=== PATIENT | female | born 1940 | race African-American/Black ===

== ENCOUNTER 2016-06-03 10:25 | Inpatient (IN) | payer OTHER ==
--- NOTE | 2016-06-03 11:31 | PDOC ---
History of Present Illness - General Chief Complaint: Pain, Acute Stated Complaint: ABD PAIN (PCP SENT) Time Seen by Provider: 06/03/16 11:26 - History of Present Illness Initial Comments: 06/03/16 11:30 CHIEF COMPLAINT: abd pain HISTORY OF PRESENT ILLNESS: 75 yo F with hx of HTN, hypothyroidism (s/p thyroidectomy) was sent to ED by PCP for possible diverticulitis. Patient states 6 days ago she started having some abdominal pain "after eating some fish and a little barbecue, but I thought the pain would go away and it didn't. " Patient states she saw her PCP (MD Munoz) on Monday and was prescribed antibiotics (Levaquin and Flagyl), but her abdominal discomfort has not improved. She denies any nausea, vomiting, or diarrhea but complains of persistent LLQ. No recent travel or sick contacts. PAST MEDICAL HISTORY: as per HPI SOCIAL HISTORY: Lives at home. Denies tobacco, alcohol, illicit drug use. SURGICAL HISTORY: thyroidectomy, appendectomy (as child), hysterectomy, b/l knee replacements ALLERGIES: erythromycin, pcn, tetracyclines REVIEW OF SYSTEMS General/Constitutional: Denies fever or chills. Denies weakness, weight change. HEENT: Denies change in vision. Denies ear pain or discharge. Denies sore throat. Cardiovascular: Denies chest pain or shortness of breath. Respiratory: Denies cough, wheezing, or hemoptysis. Gastrointestinal: LLQ pain x 6 days. Denies nausea, vomiting, diarrhea or constipation. Denies rectal bleeding. Genitourinary: Denies dysuria, frequency, or change in urination. Musculoskeletal: Denies joint or muscle swelling or pain. Denies neck or back pain. Skin and breasts: Denies rash or easy bruising. PHYSICAL EXAM General Appearance: Well-appearing, appropriately dressed. No apparent distress , no intoxication. HEENT: EOMI, PERRLA, normal ENT inspection, normal voice, TMs normal, pharynx normal. No conjunctival pallor. No photophobia, scleral icterus. Respiratory/Chest: Lungs CTAB. Cardiovascular: RRR. S1, S2. Gastrointestinal/Abdominal: Tenderness to LLQ. Normal bowel sounds. Abdomen soft, non-distended. No organomegaly, pulsatile mass, guarding, hernia, hepatomegaly, splenomegaly. Lymphatic: No adenopathy, tenderness. Musculoskeletal/Extremities: Normal inspection. FROM of all extremities, normal capillary refill. Pelvis Stable. No CVA tenderness. No tenderness to extremities, pedal edema, swelling, erythema or deformity. Integumentary: Appropriate color, dry, warm. No cyanosis, erythema, jaundice or rash Neurologic: nurseryperson II-XII intact. Fully oriented, alert. Appropriate mood/affect. Motor strength 5/5. No appreciable EOM palsy, facial droop or sensory deficit. Past History - Past Medical History Allergies/Adverse Reactions: Allergies Allergy/AdvReac Type Severity Reaction Status Date / Time erythromycin base Allergy Verified 02/10/16 20:07 lactose Allergy Verified 06/05/16 13:55 Penicillins Allergy Verified 02/10/16 20:07 Tetracyclines Allergy Verified 02/10/16 20:07 Home Medications: Ambulatory Orders Aspirin [ASA -] 81 mg PO DAILY 06/03/16 Clotrimazole/Betamet Diprop [Lotrisone Cream (Small Tube)] 1 applic TP BID 06/03 Clotrimazole/Betamethasone Dip [Clotrimazole-Betamethasone Lot] 30 ml TP BID Levofloxacin [Levaquin] 500 mg PO DAILY 06/03/16 Levothyroxine [Synthroid -] 25 mcg PO DAILY 06/03/16 Metronidazole [Flagyl -] 500 mg PO BID 06/03/16 Nebivolol [Bystolic -] 5 mg PO DAILY 06/03/16 Olmesartan/Hydrochlorothiazide [Benicar Hct 40-25 mg Tablet] 1 each PO ACHS Olmesartan/Hydrochlorothiazide [Benicar Hct 40-25 mg Tablet] 1 each PO DAILY Polyethylene Glycol 3350 [Miralax 119 gm Btl -] 17 gm PO DAILY 06/03/16 Potassium Chloride [K-Dur -] 20 meq PO DAILY 06/03/16 Simethicone [Mylicon -] 80 mg PO DAILY 06/03/16 Trazodone HCl [Desyrel -] 50 mg PO HS 06/03/16 Polyethylene Glycol 3350 [Miralax (For Bowel Prep) -] 17 gm PO DAILY #1 bottle 06/10/16 Anemia: No Asthma: No Cancer: No Cardiac Disorders: No CVA: No COPD: No CHF: No Dementia: No Diabetes: No HTN: Yes Seizures: No Thyroid Disease: Yes (Hypothyroid) - Surgical History Abdominal Surgery: Yes Orthopedic Surgery: Yes - Psycho/Social/Smoking Cessation Hx Suicidal Ideation: No Smoking History: Never smoked Have you smoked in the past 12 months: No Information on smoking cessation initiated: No Hx Alcohol Use: No Drug/Substance Use Hx: No Substance Use Type: None Abd/GI Specific PMHX - Complaint Specific PMHX Gall Bladder Disease: No GERD: No Hepatitis: No Irritable Bowel Synd (IBS): No Pancreatitis: No GI Ulcer Disease: No *Physical Exam - Vital Signs Last Vital Signs Temp Pulse Resp BP Pulse Ox 98.6 F 81 18 160/69 100 06/03/16 10:27 06/03/16 10:27 06/03/16 10:27 06/03/16 10:27 06/03/16 10:27 ED Treatment Course - LABORATORY CBC & Chemistry Diagram: 06/10/16 06:15 06/10/16 06:15 - RADIOLOGY Radiology Studies Ordered: Category Date Time Status ABDOMEN & PELVIS CT WITH CONTR [CT] Stat CT Scan 06/03/16 11:28 Ordered CHEST PA & LAT [RAD] Stat Radiology 06/03/16 11:30 Ordered Medical Decision Making - Medical Decision Making 06/03/16 12:34 75 yo F with hx of HTN, hypothyroidism (s/p thyroidectomy) was sent to ED by PCP for possible diverticulitis. -CBC, CMP, lipase -EKG, CXR -Abdomen and pelvis CT with contrast CT results: Extensive diverticulsis coli with interval worsening in the degree of thickening of the mid sigmoid colon wall. Acute diverticulitis seen. A couple extraluminal air pocket suggestive of microperforation with significant edema and stranding, mainly anteriorly that may represent early formation of a phlegmon. No drainable collection/abscess identified. Read by: Vandana Gloria MD Discussed case with PCP Milagros, who accepts patient to inpatient services. *DC/Admit/Observation/Transfer Diagnosis at time of Disposition: Diverticulitis of sigmoid colon - Discharge Dispostion Disposition: HOME Admit: Yes - Prescriptions - Referrals
[2016-06-03 11:49] LABS: BASOPHIL 0.7 % (0-2.0); MCH 30.1 pg (25.7-33.7); MCHC 33.1 g/dl (32.0-36.0); MEAN CELL VOLUME 90.7 fl (80-96); MEAN PLT VOLUME 8.9 fl (7.5-11.1); NEUTROPHILS 69.5 % (42.8-82.8); PLATELET COUNT 267 K/MM3 (134-434); RDW 13.6 % (11.6-15.6); WHITE BLOOD COUNT 12.2 K/mm3 (4.0-10.0)
[2016-06-03 12:08] LABS: ALBUMIN 3.5 g/dl (3.4-5.0); BILIRUBIN,TOTAL 0.5 mg/dL (0.2-1.0); CALCIUM 9.5 mg/dL (8.5-10.1); CREATININE 1.1 mg/dL (0.55-1.02); TOT PROT 7.9 g/dl (6.4-8.2)
[2016-06-03] MEDS ORDERED: LEVOFLOXACIN 500 MG IVPB 100 ML IVPB ONE (15:48)
--- NOTE | 2016-06-03 15:50 | HP ---
Admitting History and Physical - Admission Chief Complaint: 75 y.o F is being admitted to [facility] due to severe low abdominal pain , left worse then right. Could not sleep all night. Initially presented to the office 4 days ago with this abdominal pain suspicious of acute diverticulitis. Labs in the office at that time showed ESR 77 and CRP of 12. The patient was treated with oral Levaquin, Metronidazole and diet but her condition worsened and she was sent to [facility] for further management. History of Present Illness: Extensive diverticulosis descending colon Hospitalized 5 month ago with acute diverticulitis HLD-not on statins due to multiple adverse reactions. HTN Hypothyroidism Pre-DM History Source: Patient, Medical Record Limitations to Obtaining History: No Limitations - Past Medical History Cardiovascular: Yes: HTN, Hyperlipdemia Musculoskeletal: Yes: Chronic low back pain, Osteoarthritis, Other (Shoulder pain, knee pain). No: Bursitis, Hemiparesis, Hemiplegia, Paraplegia Rheumatology: Yes: Other (OA) Endocrine: Yes: Hypothyroidism - Smoking History Smoking history: Never smoked Have you smoked in the past 12 months: No - Alcohol/Substance Use Hx Alcohol Use: No Home Medications - Allergies Allergies/Adverse Reactions: Allergies Allergy/AdvReac Type Severity Reaction Status Date / Time erythromycin base Allergy Verified 02/10/16 20:07 Penicillins Allergy Verified 02/10/16 20:07 Tetracyclines Allergy Verified 02/10/16 20:07 - Home Medications Home Medications: Ambulatory Orders Aspirin [ASA -] 81 mg PO DAILY 06/03/16 Clotrimazole/Betamet Diprop [Lotrisone Cream (Small Tube)] 1 applic TP BID 06/03 Clotrimazole/Betamethasone Dip [Clotrimazole-Betamethasone Lot] 30 ml TP BID Levofloxacin [Levaquin] 500 mg PO DAILY 06/03/16 Levothyroxine [Synthroid -] 25 mcg PO DAILY 06/03/16 Metronidazole [Flagyl -] 500 mg PO BID 06/03/16 Nebivolol [Bystolic -] 5 mg PO DAILY 06/03/16 Olmesartan/Hydrochlorothiazide [Benicar Hct 40-25 mg Tablet] 1 each PO ACHS Olmesartan/Hydrochlorothiazide [Benicar Hct 40-25 mg Tablet] 1 each PO DAILY Polyethylene Glycol 3350 [Miralax (For Daily Use) -] 17 gm PO DAILY 06/03/16 Potassium Chloride [K-Dur -] 20 meq PO DAILY 06/03/16 Simethicone [Mylicon -] 80 mg PO DAILY 06/03/16 Trazodone HCl [Desyrel -] 50 mg PO HS 06/03/16 Family Disease History - Family Disease History Family History: Unremarkable Review of Systems - Review of Systems Constitutional: reports: Loss of Appetite, Malaise, Weakness Eyes: denies: No Symptoms, Blind Spots, Blurred Vision, Double Vision, Eye Pain , Floaters, Photophobia, Recent Change in Vision, Other HENT: denies: No Symptoms, Difficult Swallowing, Ear Discharge, Ear Pain, Epistaxis, Gingival Bleeding, Hearing Loss, Mouth Swelling, Nasal Congestion, Ocular Prosthesis, Throat Pain, Toothache, Ringing in Ears, Other Neck: denies: No Symptoms, Decreased ROM, Lumps, Pain on Movement, Stiffness, Swollen Glands, Tenderness, Other Cardiovascular: denies: No Symptoms, Chest Pain, Edema, Palpitations, Shortness of Breath, Other Respiratory: denies: No Symptoms, Cough, Exercise Intolerance, Hemoptysis, Orthopnea, PND, Snoring, SOB, SOB on Exertion, Wheezing, Other Gastrointestinal: reports: Abdominal Pain, Diarrhea, Indigestion, Nausea. denies: Rectal Bleeding, Vomiting, Vomiting Blood Genitourinary: denies: Burning, Discharge Breasts: reports: No Symptoms Reported Musculoskeletal: reports: No Symptoms Neurological: reports: No Symptoms Hematology/Lymphatic: reports: No Symptoms Psychiatric: reports: No Symptoms Physical Examination Vital Signs: Vital Signs Temperature 98.6 F 06/03/16 10:27 Pulse Rate 81 06/03/16 10:27 Respiratory Rate 18 06/03/16 10:27 Blood Pressure 160/69 06/03/16 10:27 O2 Sat by Pulse Oximetry (%) 100 06/03/16 10:27 Constitutional: Yes: Anxious, Mild Distress Eyes: Yes: Conjunctiva Clear, EOM Intact HENT: Yes: Atraumatic, Normocephalic Neck: Yes: Supple, Trachea Midline Cardiovascular: Yes: Regular Rate and Rhythm. No: Bradycardia Respiratory: Yes: Regular, CTA Bilaterally Gastrointestinal: Yes: Soft, Tenderness (LLQ>RLH). No: Vomiting Breast(s): Yes: WNL Musculoskeletal: Yes: WNL Extremities: Yes: WNL Edema: No Peripheral Pulses WNL: Yes Integumentary: Yes: WNL Neurological: Yes: Alert, Oriented ...Motor Strength: WNL Psychiatric: Yes: WNL Labs: CBC, BMP 06/03/16 11:35 06/03/16 11:35 Laboratory Results - last 24 hr 06/03/16 06/03/16 11:35 11:35 WBC 12.2 H D RBC 3.61 Hgb 10.8 Hct 32.7 MCV 90.7 MCHC 33.1 RDW 13.6 Plt Count 267 MPV 8.9 Neutrophils % 69.5 Lymphocytes % 19.5 D Monocytes % 9.3 Eosinophils % 1.0 Basophils % 0.7 D Sodium 138 Potassium 4.5 Chloride 102 Carbon Dioxide 28 Anion Gap 8 BUN 12 Creatinine 1.1 H D Creat Clearance w eGFR 48.29 Random Glucose 97 Calcium 9.5 Total Bilirubin 0.5 D AST 23 D ALT 26 Alkaline Phosphatase 83 D Total Protein 7.9 D Albumin 3.5 Lipase 135 Laboratory Results - last 24 hr 06/03/16 06/03/16 06/03/16 11:35 11:35 13:36 WBC 12.2 H D RBC 3.61 Hgb 10.8 Hct 32.7 MCV 90.7 MCHC 33.1 RDW 13.6 Plt Count 267 MPV 8.9 Neutrophils % 69.5 Lymphocytes % 19.5 D Monocytes % 9.3 Eosinophils % 1.0 Basophils % 0.7 D ESR 123 H Sodium 138 Potassium 4.5 Chloride 102 Carbon Dioxide 28 Anion Gap 8 BUN 12 Creatinine 1.1 H D Creat Clearance w eGFR 48.29 Random Glucose 97 Calcium 9.5 Total Bilirubin 0.5 D AST 23 D ALT 26 Alkaline Phosphatase 83 D Total Protein 7.9 D Albumin 3.5 Lipase 135 Imaging - Results Cat Scan: Image Reviewed (Discussed with Dr Thomas) Problem List - Problems (1) Diverticulitis of sigmoid colon Assessment/Plan: Acute new area of sigmoid diverticulitis and phlegmon on CT Will follow with CT SX consult IV fluids, AB Follow ESTR, CRP Code(s): K57.32 - DVTRCLI OF LG INT W/O PERFORATION OR ABSCESS W/O BLEEDING (2) Abdominal pain Assessment/Plan: Due to sigmoid diverticulitis Will repeat CT in 24-48 hrs to r/o development drainable abscess. Clear liquid diet Miralax PO Code(s): R10.9 - UNSPECIFIED ABDOMINAL PAIN Qualifiers: Abdominal location: left lower quadrant Qualified Code(s): R10.32 - Left lower quadrant pain (3) HTN (hypertension) Assessment/Plan: Follow BP Bystolic PO Code(s): I10 - ESSENTIAL (PRIMARY) HYPERTENSION Qualifiers: Hypertension type: essential hypertension Qualified Code(s): I10 - Essential (primary) hypertension (4) Hypothyroidism Assessment/Plan: Continue oral Synthroid Code(s): E03.9 - HYPOTHYROIDISM, UNSPECIFIED Qualifiers: Hypothyroidism type: acquired Qualified Code(s): E03.9 - Hypothyroidism, unspecified
[2016-06-03] MEDS: LEVOFLOXACIN 500 MG IVPB 100 ML IVPB SCH (15:55)
--- NOTE | 2016-06-03 16:29 | PN ---
Progress Note (short form) - Note Progress Note: ID consult dictated imp/reccd 75 year old female with PMH of diverticulitis/diverticulosis, last treated with levaquin in 01/2016 for diverticulitis seen by Dr Munoz on Monday, she c/o 4 day of abdominal pain LLQ . no fevers she started levaquin 250 daily and flagyl 500 bid for 2-3 days this week and the abd pain worsened and she came to ed ct scan with sigmoid diverticulitis with phlegmon she is allergic to penicillin (many years ago in [place]-) allergic to erythromycin (SOB) allergic to Tetracycline (SOB) no weight loss last colonsocopy within 5 years 2 bms yesterday acute diverticulitis with phlegmon multiple antibiotic allergies agree with levaquin/flagyl - add azactam for increased gram negative coverage d/w Dr Munoz Problem List - Problems (1) Diverticulitis of sigmoid colon Code(s): K57.32 - DVTRCLI OF LG INT W/O PERFORATION OR ABSCESS W/O BLEEDING (2) Hx of antibiotic allergy Code(s): Z88.1 - ALLERGY STATUS TO OTHER ANTIBIOTIC AGENTS STATUS
[2016-06-03] MEDS: METRONIDAZOLE 500 MG PREMIXED 100 ML IVPB SCH ×2 (17:02→18:44)
[2016-06-03] MEDS ORDERED: METRONIDAZOLE 500 MG PREMIXED 100 ML IVPB ONE (17:17)
[2016-06-03 18:31] VITALS: BMI 29.3
[2016-06-03] MEDS: D5-1/2NS+20 MEQ KCL - 1,000 ML IV SCH (18:46)
--- NOTE | 2016-06-03 19:40 | CON.GI ---
Consult Consult Specialty:: GI Referred by:: Dr. Luis Eduardo Munoz Reason for Consultation:: Diverticulitis - History of Present Illness Chief Complaint: "I was having abdominal pain since monday" History of Present Illness: 75F admitted for evaluation of abdominal pain. She states that the pain started monday evening after having dinner. The pain persisted so she thought she would treat herself by changing to a liquid diet. The pain persisted so she was advised to go to ER. She was noted have a leukocytosis and CT scan revealed chronic thickening of the sigmoid colon along with area of acute inflammation, diverticulosis and air droplets adjacent to the sigmoid c/w diverticulitis. She believes that she last had a colonoscopy 5 + years ago that was "clean". She denies rectal bleeding, diarrhea or unintentional weight loss. - History Source History Provided By: Patient Limitations to Obtaining History: No Limitations - Past Medical History Cardio/Vascular: Yes: HTN, Hyperlipdemia Gastrointestinal: Yes: Diverticulosis Musculoskeletal: Yes: Chronic low back pain, Osteoarthritis, Other (Shoulder pain, knee pain). No: Bursitis, Hemiparesis, Hemiplegia, Paraplegia Rheumatology: Yes: Other (OA) Endocrine: Yes: Hypothyroidism (surgical secondary to partial thyroidectomy) - Past Surgical History Past Surgical History: Yes: Hysterectomy - Alcohol/Substance Use Hx Alcohol Use: No History of Substance Use: reports: None - Smoking History Smoking history: Never smoked Have you smoked in the past 12 months: No - Social History Usual Living Arrangement: Alone () ADL: Independent Occupation: Retired Orthopedic Assistant Place of : Other ([place]) Came to [place]year[place] over 40 years ago History of Recent Travel: No (last traveled to [place] last year) Home Medications - Allergies Allergies/Adverse Reactions: Allergies Allergy/AdvReac Type Severity Reaction Status Date / Time erythromycin base Allergy Verified 02/10/16 20:07 Penicillins Allergy Verified 02/10/16 20:07 Tetracyclines Allergy Verified 02/10/16 20:07 - Home Medications Home Medications: Ambulatory Orders Aspirin [ASA -] 81 mg PO DAILY 06/03/16 Clotrimazole/Betamet Diprop [Lotrisone Cream (Small Tube)] 1 applic TP BID 06/03 Clotrimazole/Betamethasone Dip [Clotrimazole-Betamethasone Lot] 30 ml TP BID Levofloxacin [Levaquin] 500 mg PO DAILY 06/03/16 Levothyroxine [Synthroid -] 25 mcg PO DAILY 06/03/16 Metronidazole [Flagyl -] 500 mg PO BID 06/03/16 Nebivolol [Bystolic -] 5 mg PO DAILY 06/03/16 Olmesartan/Hydrochlorothiazide [Benicar Hct 40-25 mg Tablet] 1 each PO ACHS Olmesartan/Hydrochlorothiazide [Benicar Hct 40-25 mg Tablet] 1 each PO DAILY Polyethylene Glycol 3350 [Miralax (For Daily Use) -] 17 gm PO DAILY 06/03/16 Potassium Chloride [K-Dur -] 20 meq PO DAILY 06/03/16 Simethicone [Mylicon -] 80 mg PO DAILY 06/03/16 Trazodone HCl [Desyrel -] 50 mg PO HS 06/03/16 Family Disease History - Family Disease History Family Disease History: Other: Father ( 80's: unclear cause), Mother ( 84 PNA), Brother ( 64: throat ca), Sister (: 80: bladder cancer) Other Family History: 4 children, 1 son age 55 unclear causes. No family history of colon cancer Review of Systems - Review of Systems Constitutional: denies: Fever Cardiovascular: denies: Chest Pain Respiratory: denies: SOB Gastrointestinal: reports: Abdominal Pain. denies: Diarrhea, Melena, Nausea, Rectal Bleeding Physical Exam-GI Vital Signs: Vital Signs Temperature 98.9 F 06/03/16 18:14 Pulse Rate 80 06/03/16 18:14 Respiratory Rate 25 H 06/03/16 18:14 Blood Pressure 139/78 06/03/16 18:14 O2 Sat by Pulse Oximetry (%) 100 06/03/16 10:27 Constitutional: Yes: Calm Eyes: No: Sclera Icterus Cardiovascular: Yes: Regular Rate and Rhythm, Murmur Respiratory: Yes: CTA Bilaterally Gastrointestinal Inspection: No: Distention ...Auscultate: Yes: Normoactive Bowel Sounds ...Palpate: Yes: Tenderness (TTP LLQ) ...Rectal Exam: Yes: Guaiac Negative Edema: No Neurological: Yes: Alert, Oriented Labs: CBC, BMP 06/03/16 11:35 06/03/16 11:35 Hepatic Panel Total Bilirubin 0.5 mg/dL (0.2-1.0) D 06/03/16 11:35 AST 23 U/L (15-37) D 06/03/16 11:35 ALT 26 U/L (12-78) 06/03/16 11:35 Alkaline Phosphatase 83 U/L (45-117) D 06/03/16 11:35 Albumin 3.5 g/dl (3.4-5.0) 06/03/16 11:35 Imaging - Results Cat Scan: Report Reviewed, Image Reviewed Problem List - Problems (1) Diverticulitis of sigmoid colon Assessment/Plan: Clinically Ms. Mcintsoh does not appear toxic Continue clears for now. If WBC's increasing / pain worsens would change to NPO AM Labs ABx being managed by ID as Ms. Mcintosh has multiple drug allergies Explained to Ms. Mcintosh that when her acute issues are resolved, she will need follow-up colonoscopy in 6-8 weeks. Office information provided in discharge summary Will follow with you Code(s): K57.32 - DVTRCLI OF LG INT W/O PERFORATION OR ABSCESS W/O BLEEDING
[2016-06-03] MEDS ORDERED: METRONIDAZOLE 500 MG PREMIXED 100 ML IVPB SCH (21:00)
[2016-06-03] MEDS: POLYETHYLENE GLYCOL 3350 119 GM BTL PO SCH (21:13)
[2016-06-03] MEDS: AZTREONAM 1 GM in DEXTROSE 5%-WATER - 50 ML IVPB SCH (21:14)
--- NOTE | 2016-06-04 01:52 | CONS ---
DATE OF CONSULTATION: DATE OF DICTATION: 06/03/2016 HISTORY OF PRESENT ILLNESS: This is a 75-year-old female with the past medical history of diverticulitis, diverticulosis, last treated with Levaquin on January 2016 for diverticulitis. She was seen by Dr. Munoz earlier this week, she thinks on Monday. Was started on Levaquin and Flagyl because she had left lower quadrant pain which she had had for 4 days. She had no fevers. She took the antibiotics without any improvement for the last 48 to 72 hours, and the abdominal pain worsened, and she came to the emergency room. CAT scan here reveals sigmoid diverticulitis with phlegmon. ALLERGIES: Of note, she is allergic to PENICILLIN many years ago in [place]. She is allergic to ERYTHROMYCIN as well as TETRACYCLINE. MEDICATION: Her medications as an outpatient include Synthroid, aspirin, Bystolic, Benicar, and trazodone. PAST MEDICAL HISTORY: Notable for hypertension, hyperlipidemia, chronic low back pain, osteoarthritis, and hypothyroidism . SURGICAL HISTORY: Notable for history of appendectomy as a child, hysterectomy, fallopian tubes have been removed, and she has had bilateral total knee replacements. SOCIAL HISTORY: She lives in the community. She is originally from [place], currently not working. REVIEW OF SYSTEMS: There has been no weight loss. There has been no diarrhea. She had 2 bowel movements yesterday. She denies any shortness of breath. She denies any fevers or chills or dysuria. PHYSICAL EXAMINATION: Vital signs: Temperature 98.6, blood pressure 160/69, pulse 81, respiratory rate 18. HEENT: Normocephalic. Eyes are anicteric. Neck: Supple. Lungs: Clear to auscultation. Heart: Regular rate and rhythm. Abdomen: Soft. She has no rebound or guarding. She has positive bowel sounds. She has left lower quadrant pain on palpation. LABORATORY: White count is 12.2, hemoglobin 10.8, platelets 267, sedimentation rate is 123, BUN and creatinine are 12 and 1.1, LFTs are normal. No cultures were sent. IMPRESSION: In summary, this is a 75-year-old woman with history of PENICILLIN allergy, allergic to ERYTHROMYCIN, allergic to TETRACYCLINE. She has had no weight loss. The last colonoscopy she says was within the last 5 years with acute diverticulitis with phlegmon on CAT scan and multiple antibiotic allergies. Would agree with Levaquin and Flagyl. Would add Azactam for increased gram negative coverage, and she was last on Levaquin back 2-3 months ago in January. All of the above was discussed with Dr. Munoz. JENNIE HINES M.D. [facility]/[id number]
[2016-06-04] MEDS: METRONIDAZOLE 500 MG PREMIXED 100 ML IVPB SCH ×3 (02:15→18:13)
[2016-06-04] MEDS: AZTREONAM 1 GM in DEXTROSE 5%-WATER - 50 ML IVPB SCH ×3 (02:15→17:13)
[2016-06-04] MEDS ORDERED: LEVOFLOXACIN 500 MG IVPB 100 ML IVPB SCH (06:00)
[2016-06-04] MEDS: LEVOTHYROXINE NA 25 MCG TABLET (FP) PO SCH (06:48)
--- NOTE | 2016-06-04 06:51 | PN ---
Progress Note, Physician Chief Complaint: C/o left low abdominal pain, weakness History of Present Illness: Extensive diverticulosis descending colon Hospitalized 5 month ago with acute diverticulitis HLD-not on statins due to multiple adverse reactions. HTN Hypothyroidism Pre-DM Thyroidectomy for goiter CHEO B/L TKR Appendectomy - Current Medication List Current Medications: Active Medications Levofloxacin (Levaquin 500 Mg Premixed Ivpb -) 100 mls @ 100 mls/hr IVPB DAILY [facility] Last Admin: 06/03/16 15:55 Dose: 100 mls/hr Potassium Chloride/Dextrose/Sod Cl (D5-1/2ns+20 Meq Kcl -) 1,000 mls @ 100 mls/ hr IV ASDIR [facility] Last Admin: 06/03/16 18:46 Dose: 100 mls/hr Metronidazole (Flagyl 500mg Premixed Ivpb -) 100 mls @ 100 mls/hr IVPB Q8H-IV [facility] Last Admin: 06/04/16 02:15 Dose: 100 mls/hr Aztreonam 1 gm/ Dextrose 50 mls @ 100 mls/hr IVPB Q8H-IV [facility] PRN Reason: Protocol Last Admin: 06/04/16 02:15 Dose: 100 mls/hr Levothyroxine Sodium (Synthroid -) 25 mcg PO DAILY@0700 ON LICENSE OF [facility] Nebivolol (Bystolic -) 5 mg PO DAILY ON LICENSE OF [facility] Polyethylene Glycol (Miralax (For Daily Use) -) 17 gm PO BID ON LICENSE OF [facility] Last Admin: 06/03/16 21:13 Dose: 17 grams - Objective Vital Signs: Vital Signs Temperature 98.7 F 06/03/16 22:00 Pulse Rate 82 06/03/16 22:00 Respiratory Rate 20 06/03/16 22:00 Blood Pressure 136/66 06/03/16 22:00 O2 Sat by Pulse Oximetry (%) 100 06/03/16 21:00 Constitutional: Yes: No Distress. No: Cachectic Eyes: Yes: Conjunctiva Clear, EOM Intact HENT: Yes: Atraumatic, Normocephalic. No: Drooling Neck: Yes: Supple, Trachea Midline Cardiovascular: Yes: Regular Rate and Rhythm. No: Bradycardia, Tachycardia Respiratory: Yes: Regular, CTA Bilaterally Gastrointestinal: Yes: Normal Bowel Sounds, Soft, Tenderness (LLQ). No: Splenomegaly, Vomiting ...Rectal Exam: Yes: Deferred (As per GI yesterday) Genitourinary: No: Anuria, Bladder Distention Breast(s): Yes: WNL Extremities: Yes: Other (B/L TKR). No: Calf Tenderness, Cold, Cyanosis Edema: No Peripheral Pulses WNL: Yes Integumentary: Yes: WNL Neurological: Yes: WNL, Alert, Oriented. No: Aphasia ...Motor Strength: WNL Psychiatric: Yes: WNL Additional Findings/Remarks: Laboratory Results - last 24 hr 06/03/16 06/03/16 06/03/16 11:35 11:35 13:36 WBC 12.2 H D RBC 3.61 Hgb 10.8 Hct 32.7 MCV 90.7 MCHC 33.1 RDW 13.6 Plt Count 267 MPV 8.9 Neutrophils % 69.5 Lymphocytes % 19.5 D Monocytes % 9.3 Eosinophils % 1.0 Basophils % 0.7 D ESR 123 H Sodium 138 Potassium 4.5 Chloride 102 Carbon Dioxide 28 Anion Gap 8 BUN 12 Creatinine 1.1 H D Creat Clearance w eGFR 48.29 Random Glucose 97 Calcium 9.5 Total Bilirubin 0.5 D AST 23 D ALT 26 Alkaline Phosphatase 83 D Total Protein 7.9 D Albumin 3.5 Lipase 135 Problem List - Problems (1) Diverticulitis of sigmoid colon Assessment/Plan: Acute new area of sigmoid diverticulitis and phlegmon on CT Will follow with CT in 24-48 hrs SX consult IV fluids, AB Follow ESTR, CRP Code(s): K57.32 - DVTRCLI OF LG INT W/O PERFORATION OR ABSCESS W/O BLEEDING (2) Abdominal pain Assessment/Plan: Due to sigmoid diverticulitis Will repeat CT in 24-48 hrs to r/o development drainable abscess. Clear liquid diet Miralax PO Code(s): R10.9 - UNSPECIFIED ABDOMINAL PAIN Qualifiers: Abdominal location: left lower quadrant Qualified Code(s): R10.32 - Left lower quadrant pain (3) HTN (hypertension) Assessment/Plan: Follow BP Bystolic PO Code(s): I10 - ESSENTIAL (PRIMARY) HYPERTENSION Qualifiers: Hypertension type: essential hypertension Qualified Code(s): I10 - Essential (primary) hypertension (4) Hypothyroidism Assessment/Plan: Continue oral Synthroid Code(s): E03.9 - HYPOTHYROIDISM, UNSPECIFIED Qualifiers: Hypothyroidism type: acquired Qualified Code(s): E03.9 - Hypothyroidism, unspecified
[2016-06-04 08:02] LABS: BASOPHIL 0.4 % (0-2.0); EOSINOPHIL 1.8 % (0-4.5); MCH 30.1 pg (25.7-33.7); MCHC 33.7 g/dl (32.0-36.0); MEAN CELL VOLUME 89.3 fl (80-96); MEAN PLT VOLUME 8.6 fl (7.5-11.1); NEUTROPHILS 69.1 % (42.8-82.8); PLATELET COUNT 261 K/MM3 (134-434); RDW 13.6 % (11.6-15.6); WHITE BLOOD COUNT 11.4 K/mm3 (4.0-10.0)
[2016-06-04 08:07] LABS: CALCIUM 8.7 mg/dL (8.5-10.1); CALCIUM 8.8 mg/dL (8.5-10.1); COCKROFT - GAULT 55.794
[2016-06-04 08:09] LABS: C-REACTIVE PROTEIN 7.8 MG/DL (0.00-0.3)
[2016-06-04 08:13] LABS: ALBUMIN 2.9 g/dl (3.4-5.0); BILIRUBIN,TOTAL 0.4 mg/dL (0.2-1.0); COCKROFT - GAULT 55.794; MAGNESIUM 1.8 mg/dL (1.8-2.4); PHOSPHOROUS 3.2 mg/dL (2.5-4.9); TOT PROT 6.7 g/dl (6.4-8.2)
[2016-06-04] MEDS ORDERED: PT OWN MED DRAWER 7, Y5N ONE (08:57)
[2016-06-04] MEDS: LEVOFLOXACIN 500 MG IVPB 100 ML IVPB SCH (09:10)
[2016-06-04] MEDS: D5-1/2NS+20 MEQ KCL - 1,000 ML IV SCH (09:13)
[2016-06-04] MEDS: NEBIVOLOL 5 MG TABLET (FP) PO SCH (09:15)
[2016-06-04] MEDS: POLYETHYLENE GLYCOL 3350 119 GM BTL PO SCH ×2 (09:16→22:35)
--- NOTE | 2016-06-04 09:21 | PN ---
Progress Note, Physician Chief Complaint: ID Abd pain improved Aztreonam & metronidazole Never febrile - Current Medication List Current Medications: Active Medications Levofloxacin (Levaquin 500 Mg Premixed Ivpb -) 100 mls @ 100 mls/hr IVPB DAILY [facility] Last Admin: 06/03/16 15:55 Dose: 100 mls/hr Potassium Chloride/Dextrose/Sod Cl (D5-1/2ns+20 Meq Kcl -) 1,000 mls @ 100 mls/ hr IV ASDIR [facility] Last Admin: 06/03/16 18:46 Dose: 100 mls/hr Metronidazole (Flagyl 500mg Premixed Ivpb -) 100 mls @ 100 mls/hr IVPB Q8H-IV [facility] Last Admin: 06/04/16 02:15 Dose: 100 mls/hr Aztreonam 1 gm/ Dextrose 50 mls @ 100 mls/hr IVPB Q8H-IV [facility] PRN Reason: Protocol Last Admin: 06/04/16 02:15 Dose: 100 mls/hr Levothyroxine Sodium (Synthroid -) 25 mcg PO DAILY@0700 [facility] Last Admin: 06/04/16 06:48 Dose: 25 mcg Nebivolol (Bystolic -) 5 mg PO DAILY [facility] Polyethylene Glycol (Miralax (For Daily Use) -) 17 gm PO BID [facility] Last Admin: 06/03/16 21:13 Dose: 17 grams - Objective Vital Signs: Vital Signs Temperature 98.8 F 06/04/16 06:00 Pulse Rate 78 06/04/16 06:00 Respiratory Rate 20 06/04/16 06:00 Blood Pressure 109/65 06/04/16 06:00 O2 Sat by Pulse Oximetry (%) 100 06/03/16 21:00 Constitutional: Yes: Well Nourished, No Distress Neck: Yes: WNL, Supple Cardiovascular: Yes: S1, S2 Respiratory: Yes: WNL, Regular, CTA Bilaterally Gastrointestinal: Yes: WNL, Normal Bowel Sounds, Soft, Tenderness, Other (LLQ pain no guarding) Labs: CBC, BMP 06/04/16 06:00 06/04/16 06:00 Assessment/Plan Laboratory Tests 06/03/16 06/03/16 06/04/16 11:35 13:36 06:00 WBC 12.2 H D 11.4 H Hgb 9.8 L Hct 29.1 L ESR 123 H BUN Creatinine Total Bilirubin AST ALT Alkaline Phosphatase C-Reactive Protein 06/04/16 06/04/16 06:00 06:00 WBC Hgb Hct ESR BUN 7 Creatinine 1.0 Total Bilirubin 0.4 AST 19 ALT 22 Alkaline Phosphatase 70 C-Reactive Protein 7.8 H Assessment Acute and chronic diverticulititis microperf suggested Many allergies noted Plan Continue current antibiotics as ordered ? Benefit of quinolone the gram neg coverage of aztreonam Doni RUANO
--- NOTE | 2016-06-04 10:46 | PN ---
Progress Note (short form) - Note Progress Note: surgery pt seen and examined. full consult dictated. 75 female previous diverticulitis in january, last colonoscopy about 5 years ago, previous CHEO and cyst removal, presents with llq abd pain, leukocytosis, and ct consistent with perforated contained mid sigmoid diverticulitis in same location as january. On exam abd is soft with mild suprapubic tenderness. Plan- Pt declines acute surgical intervention because she does not want a colostomy. cont medical management. cont npo, cont iv abx per id, may need to repeat ct on Monday to r/o abscess development. if medical management successful should consider elective sigmoid colectomy to prevent future recurrence. This should be done after colonoscopy in about 6-8 weeks. Pt understands that this may be a malignancy and that medical mangement may delay the diagnosis and ultimately lead to a worse outcome. Pt is non toxic. will follow.
--- NOTE | 2016-06-04 11:20 | CONS ---
DATE OF CONSULTATION: 06/04/2016 This is an emergency room consultation; it was requested by the emergency room physician. BRIEF HISTORY: This is a 75-year-old female who was previously admitted in January for presumed diverticulitis of her sigmoid colon. At that point, it was noncomplicated, and she had had a colonoscopy approximately 5 years earlier. She returns to [facility] Emergency Room with lower abdominal pain, left side greater than right side. She was noted to have some mild tenderness with an elevated white blood cell count. She underwent a CAT scan of her abdomen and pelvis which was consistent with a complicated diverticulitis, showing microperforation in the mid-sigmoid colon at the same location of her previous episode in January. She was admitted to the hospital, started on intravenous antibiotics which were then adjusted by the ID service to aztreonam as well as Flagyl. Overnight, she feels well. A surgical consultation was requested. She denies diarrhea, denies blood in her stool, denies recent weight loss. PAST MEDICAL HISTORY: Significant for diabetes, hypertension, hyperlipidemia. PAST SURGICAL HISTORY: Significant for a hysterectomy done through a Pfannenstiel incision and an ovarian cyst removal. SOCIAL HISTORY: Negative for alcohol. Negative for tobacco. ALLERGIES: PENICILLIN, TETRACYCLINE, ERYTHROMYCIN. HOME MEDICATIONS: Include aspirin, Levaquin, Flagyl, Bystolic, Benicar, and Desyrel. She was restarted on Levaquin and Flagyl this week by her PMD for presumed diverticulitis. FAMILY HISTORY: Noncontributory. REVIEW OF SYSTEMS: General: Denies fatigue or malaise. Cardiac: Denies chest pain or palpitations. Respiratory: Denies shortness of breath or wheeze. Gastrointestinal: As in HPI. Genitourinary: Denies dysuria. Musculoskeletal: Denies joint pain, joint swelling. Psychiatric: Denies hearing voices. PHYSICAL EXAMINATION: General: This is a well-developed, well-nourished, 75-year-old female in no distress. Vital Signs: She is afebrile. Her vital signs are stable. HEENT: Her head is normocephalic. Her sclerae are anicteric. Neck: Supple. Chest: Clear. Abdomen: Soft. She has a Pfannenstiel incision. She has perhaps an umbilical laparoscopic scar. She has mild tenderness in the suprapubic area. She is mildly distended. Extremities: No clubbing or cyanosis. There is trace edema, however. LABORATORY DATA: On review of her laboratory, white blood cell count is 11.4, which is down from 12.2. Her sedimentation rate is elevated at 123. Her chemistries are unremarkable. Her imaging is as in HPI. ASSESSMENT: This is a 75-year-old female with left lower quadrant pain, minimal suprapubic tenderness, leukocytosis, and CT scan evidence of complicated, recurrent sigmoid diverticulitis. Clinically, this is complicated, recurrent, acute sigmoid diverticulitis. I agree with admission. I agree with the antibiotic choice to cover Escherichia coli and other enteric-related as well as gram-negative bacteria. I would keep the patient n.p.o. despite the fact that she looks well and would consider repeat CAT scan on Monday to follow for development of an abscess. At this point, the patient has been offered exploratory surgery with sigmoid colectomy and colostomy and declines. She wishes to prevent having a colostomy. She understands that she may worsen and develop sepsis. She also understands that there is a small chance that this may be a malignancy and that by not doing surgery now, she could delay the diagnosis and ultimately have a worse outcome if this is cancer. She accepts this risk, and her daughter is present for the conversation. Therefore, would keep n.p.o., continue IV antibiotics. If medical management is successful, would consider elective sigmoid colectomy in 6-8 weeks after colonoscopy. This could likely be done laparoscopically and would likely not require a colostomy. At this point, we will follow the patient closely with you. She appears nontoxic. DO ALONDRA MARTINEZ/[id number] MTDD
--- NOTE | 2016-06-04 13:42 | PN ---
GI Progress Note Subjective: No acute events Abdominal pain improved - Objective Vital Signs: Vital Signs Temperature 98.4 F 06/04/16 09:00 Pulse Rate 74 06/04/16 09:00 Respiratory Rate 16 06/04/16 09:00 Blood Pressure 122/67 06/04/16 09:00 O2 Sat by Pulse Oximetry (%) 100 06/03/16 21:00 Constitutional: Calm Eyes: No: Sclera Icterus Cardiovascular: Yes: Regular Rate and Rhythm, Murmur Respiratory: Yes: CTA Bilaterally Gastrointestinal Inspection: No: Distention ...Auscultate: Yes: Normoactive Bowel Sounds ...Palpate: Yes: Tenderness (much improved TTP LLQ). No: Guarding, Tenderness, Rebound ...Percussion: No: Tympanitic Edema: No Neurological: Yes: Alert, Oriented Labs: CBC, BMP 06/04/16 06:00 06/04/16 06:00 Problem List - Problems (1) Diverticulitis of sigmoid colon Assessment/Plan: Patient clinically improved Seen by surgery who wants her to remain NPO. Dietary advancement per surgery Daily labs IV Abx per ID Will need follow-up colnoscopy in 6-8 weeks Code(s): K57.32 - DVTRCLI OF LG INT W/O PERFORATION OR ABSCESS W/O BLEEDING
--- NOTE | 2016-06-04 18:33 | EKG ---
Test Reason : Blood Pressure : / mmHG Vent. Rate : 070 BPM Atrial Rate : 070 BPM P-R Int : 170 ms QRS Dur : 088 ms QT Int : 380 ms P-R-T Axes : 043 036 030 degrees QTc Int : 410 ms NORMAL SINUS RHYTHM NORMAL ECG WHEN COMPARED WITH ECG OF 10-FEB-2016 21:12, NO SIGNIFICANT CHANGE WAS FOUND BASELINE ARTIFACT Confirmed by CELIA BEASLEY MD ([id number]) on 06/04/2016 6:33:02 PM Referred By: Confirmed By:CELIA BEASLEY MD
[2016-06-05] MEDS ORDERED: PT OWN MED DRAWER 7, Y5N ONE ×5 (02:07→17:34)
[2016-06-05] MEDS: AZTREONAM 1 GM in DEXTROSE 5%-WATER - 50 ML IVPB SCH ×3 (02:14→17:41)
[2016-06-05] MEDS: METRONIDAZOLE 500 MG PREMIXED 100 ML IVPB SCH ×3 (02:15→18:22)
[2016-06-05] MEDS: LEVOTHYROXINE NA 25 MCG TABLET (FP) PO SCH ×2 (06:06→09:31)
--- NOTE | 2016-06-05 06:42 | PN ---
Progress Note, Physician Chief Complaint: Less LLQ pain. Remains NPO Spoke to Dave Georges, GI consults appreciated. History of Present Illness: Extensive diverticulosis descending colon Hospitalized 5 month ago with acute diverticulitis HLD-not on statins due to multiple adverse reactions. HTN Hypothyroidism Pre-DM Thyroidectomy for goiter CHEO B/L TKR Appendectomy - Current Medication List Current Medications: Active Medications Potassium Chloride/Dextrose/Sod Cl (D5-1/2ns+20 Meq Kcl -) 1,000 mls @ 100 mls/ hr IV ASDIR [facility] Last Admin: 06/04/16 09:13 Dose: 100 mls/hr Metronidazole (Flagyl 500mg Premixed Ivpb -) 100 mls @ 100 mls/hr IVPB Q8H-IV [facility] Last Admin: 06/05/16 02:15 Dose: 100 mls/hr Aztreonam 1 gm/ Dextrose 50 mls @ 100 mls/hr IVPB Q8H-IV [facility] PRN Reason: Protocol Last Admin: 06/05/16 02:14 Dose: 100 mls/hr Levothyroxine Sodium (Synthroid -) 25 mcg PO DAILY@0700 [facility] Last Admin: 06/05/16 06:06 Dose: Not Given Nebivolol (Bystolic -) 5 mg PO DAILY [facility] Last Admin: 06/04/16 09:15 Dose: Not Given Polyethylene Glycol (Miralax (For Daily Use) -) 17 gm PO BID [facility] Last Admin: 06/04/16 22:35 Dose: Not Given - Objective Vital Signs: Vital Signs Temperature 99.1 F 06/05/16 02:39 Pulse Rate 82 06/04/16 22:00 Respiratory Rate 20 06/04/16 22:00 Blood Pressure 133/72 06/04/16 22:00 O2 Sat by Pulse Oximetry (%) 94 L 06/04/16 21:00 Constitutional: Yes: No Distress, Calm Eyes: Yes: Conjunctiva Clear, EOM Intact HENT: Yes: Atraumatic, Normocephalic Respiratory: Yes: Regular, CTA Bilaterally Gastrointestinal: Yes: Normal Bowel Sounds, Soft, Tenderness (LLQ) ...Rectal Exam: Yes: Deferred Genitourinary: No: Anuria, Bladder Distention Breast(s): Yes: WNL Musculoskeletal: Yes: WNL Extremities: Yes: Other (TKR). No: Calf Tenderness, Cyanosis Edema: No Peripheral Pulses WNL: Yes Integumentary: Yes: WNL Neurological: Yes: WNL ...Motor Strength: WNL Psychiatric: Yes: WNL Labs: CBC, BMP 06/04/16 06:00 06/04/16 06:00 Problem List - Problems (1) Diverticulitis of sigmoid colon Assessment/Plan: Acute new area of sigmoid diverticulitis and phlegmon on CT Will follow with CT Tomorrow SX consult noted IV fluids, AB Code(s): K57.32 - DVTRCLI OF LG INT W/O PERFORATION OR ABSCESS W/O BLEEDING (2) Abdominal pain Assessment/Plan: Due to sigmoid diverticulitis Will repeat CT tomorrow to r/o development drainable abscess. NPO except meds Miralax PO Code(s): R10.9 - UNSPECIFIED ABDOMINAL PAIN Qualifiers: Abdominal location: left lower quadrant Qualified Code(s): R10.32 - Left lower quadrant pain (3) HTN (hypertension) Assessment/Plan: Follow BP Bystolic PO Code(s): I10 - ESSENTIAL (PRIMARY) HYPERTENSION Qualifiers: Hypertension type: essential hypertension Qualified Code(s): I10 - Essential (primary) hypertension (4) Hypothyroidism Assessment/Plan: Continue oral Synthroid Code(s): E03.9 - HYPOTHYROIDISM, UNSPECIFIED Qualifiers: Hypothyroidism type: acquired Qualified Code(s): E03.9 - Hypothyroidism, unspecified
[2016-06-05] MEDS: NEBIVOLOL 5 MG TABLET (FP) PO SCH (09:31)
[2016-06-05] MEDS: POLYETHYLENE GLYCOL 3350 119 GM BTL PO SCH ×2 (09:31→21:26)
[2016-06-05 10:48] LABS: BASOPHIL 0.4 % (0-2.0); EOSINOPHIL 1.7 % (0-4.5); MCH 29.6 pg (25.7-33.7); MCHC 32.8 g/dl (32.0-36.0); MEAN CELL VOLUME 90.3 fl (80-96); MEAN PLT VOLUME 8.3 fl (7.5-11.1); NEUTROPHILS 68.6 % (42.8-82.8); PLATELET COUNT 307 K/MM3 (134-434); RDW 13.5 % (11.6-15.6); WHITE BLOOD COUNT 11.7 K/mm3 (4.0-10.0)
--- NOTE | 2016-06-05 11:23 | PN ---
Progress Note (short form) - Note Progress Note: surgery 06/04 pt seen and examined. full consult dictated. 75 female previous diverticulitis in january, last colonoscopy about 5 years ago, previous CHEO and cyst removal, presents with llq abd pain, leukocytosis, and ct consistent with perforated contained mid sigmoid diverticulitis in same location as january. On exam abd is soft with mild suprapubic tenderness. Plan- Pt declines acute surgical intervention because she does not want a colostomy. cont medical management. cont npo, cont iv abx per id, may need to repeat ct on Monday to r/o abscess development. if medical management successful should consider elective sigmoid colectomy to prevent future recurrence. This should be done after colonoscopy in about 6-8 weeks. Pt understands that this may be a malignancy and that medical mangement may delay the diagnosis and ultimately lead to a worse outcome. Pt is non toxic. will follow. 06/05 Pt seen and examined. feels well. no pain. hungry afebrile, tmax 100.0 abd- soft, nt Laboratory Tests 06/05/16 09:50 WBC 11.7 H Plan- clear liquids, cont iv abx. poss repeat ct MON.
--- NOTE | 2016-06-05 11:29 | PN ---
GI Progress Note Subjective: Abdominal pain improved No acute events - Objective Vital Signs: Vital Signs Temperature 98.3 F 06/05/16 08:55 Pulse Rate 77 06/05/16 08:55 Respiratory Rate 20 06/05/16 08:55 Blood Pressure 105/57 06/05/16 08:55 O2 Sat by Pulse Oximetry (%) 94 L 06/04/16 21:00 Constitutional: Calm Eyes: No: Sclera Icterus Cardiovascular: Yes: Regular Rate and Rhythm Respiratory: Yes: CTA Bilaterally Gastrointestinal Inspection: No: Distention ...Auscultate: Yes: Normoactive Bowel Sounds ...Palpate: Yes: Tenderness (much improved from admission. minimal TTP LLQ). No : Guarding, Tenderness, Rebound Edema: No Neurological: Yes: Alert, Oriented Labs: CBC, BMP 06/05/16 09:50 06/04/16 06:00 Hepatic Panel Total Bilirubin 0.4 mg/dL (0.2-1.0) 06/04/16 06:00 AST 19 U/L (15-37) 06/04/16 06:00 ALT 22 U/L (12-78) 06/04/16 06:00 Alkaline Phosphatase 70 U/L (45-117) 06/04/16 06:00 Albumin 2.9 g/dl (3.4-5.0) L 06/04/16 06:00 Problem List - Problems (1) Diverticulitis of sigmoid colon Assessment/Plan: Continuing medical management w/ IV abx / IV hydration Diet advancement per surgery Abx per ID AM labs Code(s): K57.32 - DVTRCLI OF LG INT W/O PERFORATION OR ABSCESS W/O BLEEDING
[2016-06-05] MEDS: D5-1/2NS+20 MEQ KCL - 1,000 ML IV SCH ×2 (15:55→16:08)
[2016-06-06] MEDS ORDERED: PT OWN MED DRAWER 7, Y5N ONE ×3 (01:09→18:36)
[2016-06-06] MEDS: AZTREONAM 1 GM in DEXTROSE 5%-WATER - 50 ML IVPB SCH ×3 (01:52→20:53)
[2016-06-06] MEDS: METRONIDAZOLE 500 MG PREMIXED 100 ML IVPB SCH ×3 (01:54→19:50)
[2016-06-06] MEDS: LEVOTHYROXINE NA 25 MCG TABLET (FP) PO SCH (06:22)
--- NOTE | 2016-06-06 07:46 | PN ---
Progress Note, Physician Chief Complaint: Fells better today, less abdominal pain. CT abdomen/pelvis done last night-official reading -pending. +BM History of Present Illness: Extensive diverticulosis descending colon Hospitalized 5 month ago with acute diverticulitis HLD-not on statins due to multiple adverse reactions. HTN Hypothyroidism Pre-DM Thyroidectomy for goiter CHEO B/L TKR Appendectomy - Current Medication List Current Medications: Active Medications Potassium Chloride/Dextrose/Sod Cl (D5-1/2ns+20 Meq Kcl -) 1,000 mls @ 100 mls/ hr IV ASDIR [facility] Last Admin: 06/05/16 16:08 Dose: Not Given Aztreonam 1 gm/ Dextrose 50 mls @ 100 mls/hr IVPB Q8H-IV [facility] PRN Reason: Protocol Last Admin: 06/06/16 01:52 Dose: 100 mls/hr Metronidazole (Flagyl 500mg Premixed Ivpb -) 100 mls @ 100 mls/hr IVPB Q8H-IV [facility] Last Admin: 06/06/16 01:54 Dose: 100 mls/hr Levothyroxine Sodium (Synthroid -) 25 mcg PO DAILY@0700 [facility] Last Admin: 06/06/16 06:22 Dose: 25 mcg Nebivolol (Bystolic -) 5 mg PO DAILY [facility] Last Admin: 06/05/16 09:31 Dose: 5 mg Polyethylene Glycol (Miralax (For Daily Use) -) 17 gm PO BID [facility] Last Admin: 06/05/16 21:26 Dose: Not Given - Objective Vital Signs: Vital Signs Temperature 98.4 F 06/06/16 06:00 Pulse Rate 74 06/06/16 06:00 Respiratory Rate 18 06/06/16 06:00 Blood Pressure 129/68 06/06/16 06:00 O2 Sat by Pulse Oximetry (%) 94 L 06/04/16 21:00 Constitutional: Yes: Calm Eyes: Yes: Conjunctiva Clear, EOM Intact HENT: Yes: Atraumatic, Normocephalic Neck: Yes: Supple, Trachea Midline Cardiovascular: Yes: Regular Rate and Rhythm Respiratory: Yes: Regular, CTA Bilaterally Gastrointestinal: Yes: Soft, Tenderness (LLQ). No: Abdomen, Obese, Ascites, Palpable Mass, Pulsatile Mass ...Rectal Exam: Yes: Deferred Genitourinary: No: Anuria, Bladder Distention Breast(s): Yes: WNL Musculoskeletal: No: Back Pain Edema: No Peripheral Pulses WNL: No Integumentary: Yes: WNL Neurological: Yes: WNL ...Motor Strength: WNL Psychiatric: Yes: WNL Labs: CBC, BMP 06/05/16 09:50 - ....Imaging Cat Scan: Pending Problem List - Problems (1) Diverticulitis of sigmoid colon Assessment/Plan: Acute new area of sigmoid diverticulitis and phlegmon on CT CT-P SX consult noted IV fluids, AB Code(s): K57.32 - DVTRCLI OF LG INT W/O PERFORATION OR ABSCESS W/O BLEEDING (2) Abdominal pain Assessment/Plan: Due to sigmoid diverticulitis CT-P NPO except meds Miralax PO Code(s): R10.9 - UNSPECIFIED ABDOMINAL PAIN Qualifiers: Abdominal location: left lower quadrant Qualified Code(s): R10.32 - Left lower quadrant pain (3) HTN (hypertension) Assessment/Plan: Follow BP Bystolic PO Code(s): I10 - ESSENTIAL (PRIMARY) HYPERTENSION Qualifiers: Hypertension type: essential hypertension Qualified Code(s): I10 - Essential (primary) hypertension (4) Hypothyroidism Assessment/Plan: Continue oral Synthroid Code(s): E03.9 - HYPOTHYROIDISM, UNSPECIFIED Qualifiers: Hypothyroidism type: acquired Qualified Code(s): E03.9 - Hypothyroidism, unspecified
[2016-06-06 08:10] LABS: CALCIUM 8.8 mg/dL (8.5-10.1); COCKROFT - GAULT 61.9905; CREATININE 0.9 mg/dL (0.55-1.02)
[2016-06-06] MEDS: NEBIVOLOL 5 MG TABLET (FP) PO SCH (10:15)
[2016-06-06] MEDS: POLYETHYLENE GLYCOL 3350 119 GM BTL PO SCH ×2 (10:16→22:19)
[2016-06-06] MEDS: D5-1/2NS+20 MEQ KCL - 1,000 ML IV SCH (10:16)
--- NOTE | 2016-06-06 11:27 | PN ---
Progress Note (short form) - Note Progress Note: feels much better less abdominal discomfort tolerating clears Vital Signs Period Temp Pulse Resp BP Sys/Griffith Pulse Ox Last 24 Hr 97.8 F-98.5 F 74-85 18-18 105-129/50-68 cor-rrr lungs clear abd soft,nt no pain on palpation ext no edema ct scan pending CBC, BMP 06/05/16 09:50 06/06/16 06:25 a/p diverticulitis - multiple antibiotic allergies continue antibiotics f/u ct scan (called radiology to expedite reading) Problem List - Problems (1) Diverticulitis of sigmoid colon Code(s): K57.32 - DVTRCLI OF LG INT W/O PERFORATION OR ABSCESS W/O BLEEDING (2) Hx of antibiotic allergy Code(s): Z88.1 - ALLERGY STATUS TO OTHER ANTIBIOTIC AGENTS STATUS
--- NOTE | 2016-06-06 14:41 | PN ---
Progress Note (short form) - Note Progress Note: surgery 06/04 pt seen and examined. full consult dictated. 75 female previous diverticulitis in january, last colonoscopy about 5 years ago, previous CHEO and cyst removal, presents with llq abd pain, leukocytosis, and ct consistent with perforated contained mid sigmoid diverticulitis in same location as january. On exam abd is soft with mild suprapubic tenderness. Plan- Pt declines acute surgical intervention because she does not want a colostomy. cont medical management. cont npo, cont iv abx per id, may need to repeat ct on Monday to r/o abscess development. if medical management successful should consider elective sigmoid colectomy to prevent future recurrence. This should be done after colonoscopy in about 6-8 weeks. Pt understands that this may be a malignancy and that medical mangement may delay the diagnosis and ultimately lead to a worse outcome. Pt is non toxic. will follow. 06/05 Pt seen and examined. feels well. no pain. hungry afebrile, tmax 100.0 abd- soft, nt Laboratory Tests 06/05/16 09:50 WBC 11.7 H Plan- clear liquids, cont iv abx. poss repeat ct MON. 06/06 pt seen and examined. feels well. tolerated liquids. no pain. repeat ct shows worsening which is expected only [address] but no collection or extraluminal air afebrile abd- soft, nt, nd Laboratory Tests 06/05/16 09:50 WBC 11.7 H advance to full liquids, cont iv abx. would repeat ct Monday to r/o collection.
--- NOTE | 2016-06-06 17:16 | PN ---
GI Progress Note Subjective: No acute events Overall she states feeling well CT scan revealed worsening inflammatory changes along the sigmoid with luminal narrowing Abx were adjusted by ID She alludes to having similar LLQ pain episode this past January - Objective Vital Signs: Vital Signs Temperature 98.8 F 06/06/16 15:45 Pulse Rate 76 06/06/16 15:45 Respiratory Rate 18 06/06/16 15:45 Blood Pressure 139/71 06/06/16 15:45 O2 Sat by Pulse Oximetry (%) 94 L 06/04/16 21:00 Constitutional: Calm Eyes: No: Sclera Icterus Cardiovascular: Yes: Regular Rate and Rhythm Respiratory: Yes: CTA Bilaterally Gastrointestinal Inspection: No: Distention ...Auscultate: Yes: Normoactive Bowel Sounds ...Palpate: Yes: Tenderness (Tenderness to deep palpation in the LLQ). No: Guarding, Tenderness, Rebound Edema: No (No LE edema) Neurological: Yes: Alert, Oriented Labs: CBC, BMP 06/05/16 09:50 06/06/16 06:25 Hepatic Panel Total Bilirubin 0.4 mg/dL (0.2-1.0) 06/04/16 06:00 AST 19 U/L (15-37) 06/04/16 06:00 ALT 22 U/L (12-78) 06/04/16 06:00 Alkaline Phosphatase 70 U/L (45-117) 06/04/16 06:00 Albumin 2.9 g/dl (3.4-5.0) L 06/04/16 06:00 Problem List - Problems (1) Diverticulitis of sigmoid colon Assessment/Plan: Attempting medical therapy Continuing IV abx: Adjusted per ID Surgery following Code(s): K57.32 - DVTRCLI OF LG INT W/O PERFORATION OR ABSCESS W/O BLEEDING
[2016-06-06] MEDS: VANCOMYCIN 1,250 MG in DEXTROSE 5%-WATER - 250 ML IVPB SCH (17:25)
[2016-06-07] MEDS: AZTREONAM 1 GM in DEXTROSE 5%-WATER - 50 ML IVPB SCH ×3 (02:04→18:03)
[2016-06-07] MEDS: METRONIDAZOLE 500 MG PREMIXED 100 ML IVPB SCH ×3 (03:50→18:03)
[2016-06-07] MEDS: LEVOTHYROXINE NA 25 MCG TABLET (FP) PO SCH (06:11)
[2016-06-07 08:13] LABS: BASOPHIL 0.9 % (0-2.0); EOSINOPHIL 5.2 % (0-4.5); MCH 30.1 pg (25.7-33.7); MCHC 33.3 g/dl (32.0-36.0); MEAN CELL VOLUME 90.4 fl (80-96); MEAN PLT VOLUME 8.2 fl (7.5-11.1); NEUTROPHILS 54.8 % (42.8-82.8); PLATELET COUNT 333 K/MM3 (134-434); RDW 13.2 % (11.6-15.6); WHITE BLOOD COUNT 7.8 K/mm3 (4.0-10.0)
[2016-06-07 08:15] LABS: CALCIUM 8.9 mg/dL (8.5-10.1); COCKROFT - GAULT 69.7425; CREATININE 0.8 mg/dL (0.55-1.02)
[2016-06-07] MEDS ORDERED: PT OWN MED DRAWER 7, Y5N ONE ×4 (10:01→18:09)
[2016-06-07] MEDS: NEBIVOLOL 5 MG TABLET (FP) PO SCH (10:03)
[2016-06-07] MEDS: POLYETHYLENE GLYCOL 3350 119 GM BTL PO SCH ×2 (10:04→22:08)
[2016-06-07] MEDS: D5-1/2NS+20 MEQ KCL - 1,000 ML IV SCH ×2 (10:39→18:04)
--- NOTE | 2016-06-07 12:22 | PN ---
Progress Note, Physician Chief Complaint: CT noted-some worsening of acute diverticulitis. Clinically feels better, less pain. WBC-wnl, CRP-down to 3.0 Patient was discussed with ID. History of Present Illness: Extensive diverticulosis descending colon Hospitalized 5 month ago with acute diverticulitis HLD-not on statins due to multiple adverse reactions. HTN Hypothyroidism Pre-DM Thyroidectomy for goiter CHEO B/L TKR Appendectomy - Current Medication List Current Medications: Active Medications Potassium Chloride/Dextrose/Sod Cl (D5-1/2ns+20 Meq Kcl -) 1,000 mls @ 100 mls/ hr IV ASDIR [facility] Last Admin: 06/07/16 10:39 Dose: 100 mls/hr Aztreonam 1 gm/ Dextrose 50 mls @ 100 mls/hr IVPB Q8H-IV MOHAMUD PRN Reason: Protocol Last Admin: 06/07/16 10:04 Dose: 100 mls/hr Metronidazole (Flagyl 500mg Premixed Ivpb -) 100 mls @ 100 mls/hr IVPB Q8H-IV [facility] Last Admin: 06/07/16 10:40 Dose: 100 mls/hr Vancomycin HCl 1,250 mg/ (Dextrose) 250 mls @ 125 mls/hr IVPB DAILY@1500 MOHAMUD PRN Reason: Protocol Last Admin: 06/06/16 17:25 Dose: 125 mls/hr Levothyroxine Sodium (Synthroid -) 25 mcg PO DAILY@0700 [facility] Last Admin: 06/07/16 06:11 Dose: 25 mcg Nebivolol (Bystolic -) 5 mg PO DAILY [facility] Last Admin: 06/07/16 10:03 Dose: 5 mg Polyethylene Glycol (Miralax (For Daily Use) -) 17 gm PO BID [facility] Last Admin: 06/07/16 10:04 Dose: Not Given - Objective Vital Signs: Vital Signs Temperature 97.5 F L 06/07/16 10:42 Pulse Rate 74 06/07/16 10:42 Respiratory Rate 17 06/07/16 10:42 Blood Pressure 128/73 06/07/16 10:42 O2 Sat by Pulse Oximetry (%) 94 L 06/06/16 21:00 Constitutional: Yes: Calm, Mild Distress Eyes: Yes: Conjunctiva Clear, EOM Intact HENT: Yes: Atraumatic, Normocephalic Neck: Yes: Supple, Trachea Midline. No: Decreased ROM, Lymphadenopathy Cardiovascular: Yes: Regular Rate and Rhythm. No: Bradycardia, Tachycardia Respiratory: Yes: Regular, CTA Bilaterally. No: Accessory Muscle Use, Cough Gastrointestinal: Yes: Soft, Tenderness (LLQ). No: Ascites, Palpable Mass ...Rectal Exam: Yes: Deferred Genitourinary: No: Anuria, Bladder Distention, CVA Tenderness - Left Breast(s): Yes: WNL Extremities: Yes: Other. No: Cold, Cyanosis (B/L TKR) Edema: No Integumentary: Yes: WNL Neurological: Yes: WNL ...Motor Strength: WNL Psychiatric: Yes: WNL Labs: CBC, BMP 06/07/16 06:30 06/07/16 06:30 Laboratory Results - last 24 hr 06/07/16 06/07/16 06:30 06:30 WBC 7.8 D RBC 3.29 L Hgb 9.9 L Hct 29.7 L MCV 90.4 MCHC 33.3 RDW 13.2 Plt Count 333 MPV 8.2 Neutrophils % 54.8 D Lymphocytes % 27.5 D Monocytes % 11.6 H Eosinophils % 5.2 H D Basophils % 0.9 Sodium 142 Potassium 4.4 Chloride 109 H Carbon Dioxide 25 Anion Gap 8 BUN 6 L Creatinine 0.8 Random Glucose 110 H Calcium 8.9 C-Reactive Protein 3.0 H D Problem List - Problems (1) Diverticulitis of sigmoid colon Assessment/Plan: Acute new area of sigmoid diverticulitis and phlegmon on CT CT-noted SX consult noted IV fluids, AB-AZACTAM, Flagyl, Vanco added by ID Code(s): K57.32 - DVTRCLI OF LG INT W/O PERFORATION OR ABSCESS W/O BLEEDING (2) Abdominal pain Assessment/Plan: Due to sigmoid diverticulitis CT-noted diet as per surgeons. Miralax PO Code(s): R10.9 - UNSPECIFIED ABDOMINAL PAIN Qualifiers: Abdominal location: left lower quadrant Qualified Code(s): R10.32 - Left lower quadrant pain (3) HTN (hypertension) Assessment/Plan: Follow BP Bystolic PO Code(s): I10 - ESSENTIAL (PRIMARY) HYPERTENSION Qualifiers: Hypertension type: essential hypertension Qualified Code(s): I10 - Essential (primary) hypertension (4) Hypothyroidism Assessment/Plan: Continue oral Synthroid Code(s): E03.9 - HYPOTHYROIDISM, UNSPECIFIED Qualifiers: Hypothyroidism type: acquired Qualified Code(s): E03.9 - Hypothyroidism, unspecified
--- NOTE | 2016-06-07 12:24 | PN ---
Progress Note (short form) - Note Progress Note: feels much better less abdominal discomfort ct scan with slight worsening of diverticulitis Vital Signs Period Temp Pulse Resp BP Sys/Griffith Pulse Ox Last 24 Hr 97.5 F-98.8 F 72-80 17-20 128-148/71-81 94 cor-rrr lungs clear abd soft,nt ext no edema CBC, BMP 06/07/16 06:30 06/07/16 06:30 a/p diverticulitis - multiple antibiotic allergies continue antibiotics vanco/azactam/flagyl wbc now normal d/w Dr Munoz Problem List - Problems (1) Diverticulitis of sigmoid colon Code(s): K57.32 - DVTRCLI OF LG INT W/O PERFORATION OR ABSCESS W/O BLEEDING (2) Hx of antibiotic allergy Code(s): Z88.1 - ALLERGY STATUS TO OTHER ANTIBIOTIC AGENTS STATUS
--- NOTE | 2016-06-07 13:23 | PN ---
Progress Note (short form) - Note Progress Note: surgery 06/04 pt seen and examined. full consult dictated. 75 female previous diverticulitis in january, last colonoscopy about 5 years ago, previous CHEO and cyst removal, presents with llq abd pain, leukocytosis, and ct consistent with perforated contained mid sigmoid diverticulitis in same location as january. On exam abd is soft with mild suprapubic tenderness. Plan- Pt declines acute surgical intervention because she does not want a colostomy. cont medical management. cont npo, cont iv abx per id, may need to repeat ct on Monday to r/o abscess development. if medical management successful should consider elective sigmoid colectomy to prevent future recurrence. This should be done after colonoscopy in about 6-8 weeks. Pt understands that this may be a malignancy and that medical mangement may delay the diagnosis and ultimately lead to a worse outcome. Pt is non toxic. will follow. 06/05 Pt seen and examined. feels well. no pain. hungry afebrile, tmax 100.0 abd- soft, nt Laboratory Tests 06/05/16 09:50 WBC 11.7 H Plan- clear liquids, cont iv abx. poss repeat ct MON. 06/06 pt seen and examined. feels well. tolerated liquids. no pain. repeat ct shows worsening which is expected only [address] but no collection or extraluminal air afebrile abd- soft, nt, nd Laboratory Tests 06/05/16 09:50 WBC 11.7 H advance to full liquids, cont iv abx. would repeat ct Monday to r/o collection. 06/07 Pt seen and examined. tolerating full liquids. feels much better. walking. afebrile abd- soft, nt Laboratory Tests 06/07/16 06:30 WBC 7.8 D Plan- cont full liquids. possible low fiber tomorrow. repeat ct Monday. If improved (I would expect) can likely d/c home on Po abx per id.
--- NOTE | 2016-06-07 14:00 | PN ---
GI Progress Note Subjective: States having some pain after urinating this morning, otherwise feeling better - Objective Vital Signs: Vital Signs Temperature 97.5 F L 06/07/16 10:42 Pulse Rate 74 06/07/16 10:42 Respiratory Rate 06/07/16 10:42 Blood Pressure 128/73 06/07/16 10:42 O2 Sat by Pulse Oximetry (%) 94 L 06/06/16 21:00 Constitutional: Calm Cardiovascular: Yes: Regular Rate and Rhythm, Murmur Respiratory: Yes: CTA Bilaterally Gastrointestinal Inspection: No: Distention ...Auscultate: Yes: Normoactive Bowel Sounds ...Palpate: No: Tenderness Edema: No Labs: CBC, BMP 06/07/16 06:30 06/07/16 06:30 Laboratory Tests 06/05/16 06/07/16 09:50 06:30 C-Reactive Protein 8.6 H D 3.0 H D Problem List - Problems (1) Diverticulitis of sigmoid colon Assessment/Plan: Clinically improved as has leukocytosis/CRP Continuing Abx per ID Diet advancement per surgery Code(s): K57.32 - DVTRCLI OF LG INT W/O PERFORATION OR ABSCESS W/O BLEEDING
[2016-06-07] MEDS: VANCOMYCIN 1,250 MG in DEXTROSE 5%-WATER - 250 ML IVPB SCH (15:24)
[2016-06-07] MEDS: HYDROCHLOROTHIAZIDE 25 MG TABLET (FP) PO SCH (22:24)
[2016-06-07] MEDS: VALSARTAN 160 MG TABLET (UD) PO SCH (22:24)
[2016-06-08] MEDS: AZTREONAM 1 GM in DEXTROSE 5%-WATER - 50 ML IVPB SCH ×3 (01:50→18:36)
[2016-06-08] MEDS: METRONIDAZOLE 500 MG PREMIXED 100 ML IVPB SCH ×3 (02:35→20:00)
[2016-06-08] MEDS: LEVOTHYROXINE NA 25 MCG TABLET (FP) PO SCH (06:21)
--- NOTE | 2016-06-08 08:01 | PN ---
Progress Note, Physician Chief Complaint: ID vanco metronidazole Aztreonam Feels well no commplaints - Current Medication List Current Medications: Active Medications Hydrochlorothiazide (Hctz -) 25 mg PO DAILY [facility] Last Admin: 06/07/16 22:24 Dose: 25 mg Potassium Chloride/Dextrose/Sod Cl (D5-1/2ns+20 Meq Kcl -) 1,000 mls @ 100 mls/ hr IV ASDIR [facility] Last Admin: 06/07/16 18:04 Dose: Not Given Aztreonam 1 gm/ Dextrose 50 mls @ 100 mls/hr IVPB Q8H-IV MOHAMUD PRN Reason: Protocol Last Admin: 06/08/16 01:50 Dose: 100 mls/hr Metronidazole (Flagyl 500mg Premixed Ivpb -) 100 mls @ 100 mls/hr IVPB Q8H-IV [facility] Last Admin: 06/08/16 02:35 Dose: 100 mls/hr Vancomycin HCl 1,250 mg/ (Dextrose) 250 mls @ 125 mls/hr IVPB DAILY@1500 MOHAMUD PRN Reason: Protocol Last Admin: 06/07/16 15:24 Dose: 125 mls/hr Levothyroxine Sodium (Synthroid -) 25 mcg PO DAILY@0700 [facility] Last Admin: 06/08/16 06:21 Dose: 25 mcg Nebivolol (Bystolic -) 5 mg PO DAILY [facility] Last Admin: 06/07/16 10:03 Dose: 5 mg Polyethylene Glycol (Miralax (For Daily Use) -) 17 gm PO BID [facility] Last Admin: 06/07/16 22:08 Dose: Not Given Valsartan (Diovan -) 160 mg PO DAILY [facility] Last Admin: 06/07/16 22:24 Dose: 160 mg - Objective Vital Signs: Vital Signs Temperature 98 F 06/08/16 07:14 Pulse Rate 76 06/08/16 07:14 Respiratory Rate 20 06/08/16 07:14 Blood Pressure 119/75 06/08/16 07:14 O2 Sat by Pulse Oximetry (%) 100 06/07/16 21:00 Constitutional: Yes: Well Nourished, No Distress HENT: Yes: WNL, Atraumatic Neck: Yes: WNL, Supple Cardiovascular: Yes: Regular Rate and Rhythm, S1, S2. No: Murmur Respiratory: Yes: WNL, Regular, CTA Bilaterally. No: Rales, Rhonchi Gastrointestinal: Yes: WNL, Normal Bowel Sounds, Soft. No: Tenderness, Tenderness, Epigastrium Edema: No Labs: CBC, BMP 06/07/16 06:30 06/07/16 06:30 Assessment/Plan Laboratory Tests 06/03/16 06/04/16 06/05/16 13:36 06:00 09:50 WBC Hgb Hct ESR 123 H BUN Creatinine C-Reactive Protein 7.8 H 8.6 H D 06/07/16 06/07/16 06:30 06:30 WBC 7.8 D Hgb 9.9 L Hct 29.7 L ESR BUN 6 L Creatinine 0.8 C-Reactive Protein 3.0 H D Assessment Diverticulitis with microperforation Antibiotic management the plan for now Continue IV antibiotic total 7 days CRP down Will sign off discharge on Levofloxacin metronidazole Check Vanco level. Doni RUANO
--- NOTE | 2016-06-08 08:42 | PN ---
Progress Note, Physician Chief Complaint: Less abdominal pain. HTN improved after meds last night History of Present Illness: Extensive diverticulosis descending colon Hospitalized 5 month ago with acute diverticulitis HLD-not on statins due to multiple adverse reactions. HTN Hypothyroidism Pre-DM Thyroidectomy for goiter CHEO B/L TKR Appendectomy - Current Medication List Current Medications: Active Medications Hydrochlorothiazide (Hctz -) 25 mg PO DAILY [facility] Last Admin: 06/07/16 22:24 Dose: 25 mg Potassium Chloride/Dextrose/Sod Cl (D5-1/2ns+20 Meq Kcl -) 1,000 mls @ 100 mls/ hr IV ASDIR [facility] Last Admin: 06/07/16 18:04 Dose: Not Given Aztreonam 1 gm/ Dextrose 50 mls @ 100 mls/hr IVPB Q8H-IV MOHAMUD PRN Reason: Protocol Last Admin: 06/08/16 01:50 Dose: 100 mls/hr Metronidazole (Flagyl 500mg Premixed Ivpb -) 100 mls @ 100 mls/hr IVPB Q8H-IV [facility] Last Admin: 06/08/16 02:35 Dose: 100 mls/hr Vancomycin HCl 1,250 mg/ (Dextrose) 250 mls @ 125 mls/hr IVPB DAILY@1500 MOHAMUD PRN Reason: Protocol Last Admin: 06/07/16 15:24 Dose: 125 mls/hr Levothyroxine Sodium (Synthroid -) 25 mcg PO DAILY@0700 [facility] Last Admin: 06/08/16 06:21 Dose: 25 mcg Nebivolol (Bystolic -) 5 mg PO DAILY [facility] Last Admin: 06/07/16 10:03 Dose: 5 mg Polyethylene Glycol (Miralax (For Daily Use) -) 17 gm PO BID [facility] Last Admin: 06/07/16 22:08 Dose: Not Given Valsartan (Diovan -) 160 mg PO DAILY [facility] Last Admin: 06/07/16 22:24 Dose: 160 mg - Objective Vital Signs: Vital Signs Temperature 98 F 06/08/16 07:14 Pulse Rate 76 06/08/16 07:14 Respiratory Rate 20 06/08/16 07:14 Blood Pressure 119/75 06/08/16 07:14 O2 Sat by Pulse Oximetry (%) 100 06/07/16 21:00 Constitutional: Yes: Anxious, Mild Distress Eyes: Yes: Conjunctiva Clear, EOM Intact HENT: Yes: Atraumatic, Normocephalic Neck: Yes: Supple, Trachea Midline Cardiovascular: Yes: Regular Rate and Rhythm Respiratory: Yes: Regular, CTA Bilaterally Gastrointestinal: Yes: Normal Bowel Sounds, Soft, Tenderness (LLQ). No: Abdomen , Obese ...Rectal Exam: Yes: Deferred Genitourinary: No: Anuria Breast(s): Yes: WNL Musculoskeletal: Yes: WNL Extremities: Yes: Other (B/L TKR) Integumentary: Yes: WNL Neurological: Yes: WNL ...Motor Strength: WNL Labs: CBC, BMP 06/07/16 06:30 06/07/16 06:30 Problem List - Problems (1) Diverticulitis of sigmoid colon Assessment/Plan: Well continue abx x 48 hrs IV fluids, AB-AZACTAM, Flagyl, Vanco added by ID Code(s): K57.32 - DVTRCLI OF LG INT W/O PERFORATION OR ABSCESS W/O BLEEDING (2) Abdominal pain Assessment/Plan: Due to sigmoid diverticulitis CT-noted diet as per surgeons. Miralax PO Code(s): R10.9 - UNSPECIFIED ABDOMINAL PAIN Qualifiers: Abdominal location: left lower quadrant Qualified Code(s): R10.32 - Left lower quadrant pain (3) HTN (hypertension) Assessment/Plan: Follow BP Bystolic PO-added Diovan and HCT Code(s): I10 - ESSENTIAL (PRIMARY) HYPERTENSION Qualifiers: Hypertension type: essential hypertension Qualified Code(s): I10 - Essential (primary) hypertension (4) Hypothyroidism Assessment/Plan: Continue oral Synthroid Code(s): E03.9 - HYPOTHYROIDISM, UNSPECIFIED Qualifiers: Hypothyroidism type: acquired Qualified Code(s): E03.9 - Hypothyroidism, unspecified
[2016-06-08] MEDS: POLYETHYLENE GLYCOL 3350 119 GM BTL PO SCH ×2 (09:02→21:46)
[2016-06-08] MEDS ORDERED: PT OWN MED DRAWER 7, Y5N ONE ×2 (09:03→17:30)
[2016-06-08] MEDS: NEBIVOLOL 5 MG TABLET (FP) PO SCH (09:07)
[2016-06-08] MEDS: VALSARTAN 160 MG TABLET (UD) PO SCH (09:07)
[2016-06-08] MEDS: HYDROCHLOROTHIAZIDE 25 MG TABLET (FP) PO SCH (09:07)
[2016-06-08] MEDS: D5-1/2NS+20 MEQ KCL - 1,000 ML IV SCH ×3 (09:10→16:46)
--- NOTE | 2016-06-08 11:12 | PN ---
GI Progress Note Subjective: GI NOte: Pain free. Having liquidy BMs. Hungry. - Objective Vital Signs: Vital Signs Temperature 98 F 06/08/16 07:14 Pulse Rate 76 06/08/16 07:14 Respiratory Rate 20 06/08/16 07:14 Blood Pressure 119/75 06/08/16 07:14 O2 Sat by Pulse Oximetry (%) 100 06/07/16 21:00 Laboratory Tests 06/07/16 06/07/16 06:30 06:30 WBC 7.8 D C-Reactive Protein 3.0 H D Constitutional: Calm ...Auscultate: Yes: Normoactive Bowel Sounds ...Palpate: Yes: Soft, Other (nontender) Labs: CBC, BMP 06/07/16 06:30 06/07/16 06:30 Assessment/Plan Resolving diverticulitis. Will start soft diet.
--- NOTE | 2016-06-08 11:40 | PN ---
Progress Note (short form) - Note Progress Note: surgery 06/04 pt seen and examined. full consult dictated. 75 female previous diverticulitis in january, last colonoscopy about 5 years ago, previous CHEO and cyst removal, presents with llq abd pain, leukocytosis, and ct consistent with perforated contained mid sigmoid diverticulitis in same location as january. On exam abd is soft with mild suprapubic tenderness. Plan- Pt declines acute surgical intervention because she does not want a colostomy. cont medical management. cont npo, cont iv abx per id, may need to repeat ct on Monday to r/o abscess development. if medical management successful should consider elective sigmoid colectomy to prevent future recurrence. This should be done after colonoscopy in about 6-8 weeks. Pt understands that this may be a malignancy and that medical mangement may delay the diagnosis and ultimately lead to a worse outcome. Pt is non toxic. will follow. 06/05 Pt seen and examined. feels well. no pain. hungry afebrile, tmax 100.0 abd- soft, nt Laboratory Tests 06/05/16 09:50 WBC 11.7 H Plan- clear liquids, cont iv abx. poss repeat ct MON. 06/06 pt seen and examined. feels well. tolerated liquids. no pain. repeat ct shows worsening which is expected only [address] but no collection or extraluminal air afebrile abd- soft, nt, nd Laboratory Tests 06/05/16 09:50 WBC 11.7 H advance to full liquids, cont iv abx. would repeat ct Monday to r/o collection. 06/07 Pt seen and examined. tolerating full liquids. feels much better. walking. afebrile abd- soft, nt Laboratory Tests 06/07/16 06:30 WBC 7.8 D Plan- cont full liquids. possible low fiber tomorrow. repeat ct Monday. If improved (I would expect) can likely d/c home on Po abx per id. 06/08 Pt continues to progress. advance diet. for ct Monday. likely d/c on Po levaquin and Flagyl per ID if Ct shows no worsening. Eventual consideration to elective colectomy.
[2016-06-08] MEDS: VANCOMYCIN 1,250 MG in DEXTROSE 5%-WATER - 250 ML IVPB SCH (16:46)
[2016-06-09] MEDS: METRONIDAZOLE 500 MG PREMIXED 100 ML IVPB SCH ×3 (01:27→18:00)
[2016-06-09] MEDS: AZTREONAM 1 GM in DEXTROSE 5%-WATER - 50 ML IVPB SCH ×3 (02:15→18:00)
[2016-06-09] MEDS: LEVOTHYROXINE NA 25 MCG TABLET (FP) PO SCH (06:13)
[2016-06-09] MEDS: D5-1/2NS+20 MEQ KCL - 1,000 ML IV SCH ×2 (06:15→18:52)
--- NOTE | 2016-06-09 08:07 | PN ---
Progress Note, Physician Chief Complaint: Less abdominal pain. Feels better. Tolerates PO ESR, CRP, WBC improved. Surgical consult appreciated. Elective sigmoidectomy in the future discussed with pt. History of Present Illness: Extensive diverticulosis descending colon Hospitalized 5 month ago with acute diverticulitis HLD-not on statins due to multiple adverse reactions. HTN Hypothyroidism Pre-DM Thyroidectomy for goiter CHEO B/L TKR Appendectomy - Current Medication List Current Medications: Active Medications Hydrochlorothiazide (Hctz -) 25 mg PO DAILY [facility] Last Admin: 06/08/16 09:07 Dose: 25 mg Potassium Chloride/Dextrose/Sod Cl (D5-1/2ns+20 Meq Kcl -) 1,000 mls @ 100 mls/ hr IV ASDIR [facility] Last Admin: 06/09/16 06:15 Dose: 100 mls/hr Aztreonam 1 gm/ Dextrose 50 mls @ 100 mls/hr IVPB Q8H-IV [facility] PRN Reason: Protocol Last Admin: 06/09/16 02:15 Dose: 100 mls/hr Metronidazole (Flagyl 500mg Premixed Ivpb -) 100 mls @ 100 mls/hr IVPB Q8H-IV [facility] Last Admin: 06/09/16 01:27 Dose: 100 mls/hr Vancomycin HCl 1,250 mg/ (Dextrose) 250 mls @ 125 mls/hr IVPB DAILY@1500 MOHAMUD PRN Reason: Protocol Last Admin: 06/08/16 16:46 Dose: 125 mls/hr Levothyroxine Sodium (Synthroid -) 25 mcg PO DAILY@0700 [facility] Last Admin: 06/09/16 06:13 Dose: 25 mcg Nebivolol (Bystolic -) 5 mg PO DAILY [facility] Last Admin: 06/08/16 09:07 Dose: 5 mg Polyethylene Glycol (Miralax (For Daily Use) -) 17 gm PO BID [facility] Last Admin: 06/08/16 21:46 Dose: Not Given Valsartan (Diovan -) 160 mg PO DAILY [facility] Last Admin: 06/08/16 09:07 Dose: 160 mg - Objective Vital Signs: Vital Signs Temperature 98.3 F 06/09/16 07:30 Pulse Rate 82 06/09/16 07:30 Respiratory Rate 20 06/09/16 07:30 Blood Pressure 146/74 06/09/16 07:30 O2 Sat by Pulse Oximetry (%) 100 04/19/17 21:00 Constitutional: Yes: No Distress, Calm Eyes: Yes: Conjunctiva Clear, EOM Intact HENT: Yes: Atraumatic, Normocephalic Cardiovascular: Yes: Regular Rate and Rhythm, Bradycardia Respiratory: Yes: Regular, CTA Bilaterally Gastrointestinal: Yes: Normal Bowel Sounds, Soft. No: Tenderness, Tenderness, Rebound, Vomiting ...Rectal Exam: Yes: Deferred Musculoskeletal: Yes: WNL Extremities: Yes: WNL, Other (B/L TKR) Edema: No Neurological: Yes: WNL ...Motor Strength: WNL Psychiatric: Yes: WNL Labs: CBC, BMP 06/07/16 06:30 06/07/16 06:30 Laboratory Results - last 24 hr 06/08/16 06/08/16 06:30 15:00 ESR 55 H Vancomycin Trough 8.403 Problem List - Problems (1) Diverticulitis of sigmoid colon Assessment/Plan: Well continue abx x 48 hrs IV fluids, AB-AZACTAM, Flagyl, Vanco added by ID Code(s): K57.32 - DVTRCLI OF LG INT W/O PERFORATION OR ABSCESS W/O BLEEDING (2) Abdominal pain Assessment/Plan: Due to sigmoid diverticulitis CT-noted diet advanced Miralax PO Code(s): R10.9 - UNSPECIFIED ABDOMINAL PAIN Qualifiers: Abdominal location: left lower quadrant Qualified Code(s): R10.32 - Left lower quadrant pain (3) HTN (hypertension) Assessment/Plan: Follow BP Bystolic PO-added Diovan and HCT Code(s): I10 - ESSENTIAL (PRIMARY) HYPERTENSION Qualifiers: Hypertension type: essential hypertension Qualified Code(s): I10 - Essential (primary) hypertension (4) Hypothyroidism Assessment/Plan: Continue oral Synthroid Code(s): E03.9 - HYPOTHYROIDISM, UNSPECIFIED Qualifiers: Hypothyroidism type: acquired Qualified Code(s): E03.9 - Hypothyroidism, unspecified (5) Anemia in chronic illness Assessment/Plan: Will follow H/H as outpt Ferritin, B12, folate,,Retic hapto Code(s): D63.8 - ANEMIA IN OTHER CHRONIC DISEASES CLASSIFIED ELSEWHERE
[2016-06-09] MEDS: HYDROCHLOROTHIAZIDE 25 MG TABLET (FP) PO SCH (09:35)
[2016-06-09] MEDS: VALSARTAN 160 MG TABLET (UD) PO SCH (09:36)
[2016-06-09] MEDS ORDERED: PT OWN MED DRAWER 7, Y5N ONE (09:41)
[2016-06-09] MEDS: POLYETHYLENE GLYCOL 3350 119 GM BTL PO SCH ×2 (09:44→21:27)
[2016-06-09] MEDS: NEBIVOLOL 5 MG TABLET (FP) PO SCH (09:44)
--- NOTE | 2016-06-09 10:56 | PN ---
Progress Note (short form) - Note Progress Note: surgery 06/04 pt seen and examined. full consult dictated. 75 female previous diverticulitis in january, last colonoscopy about 5 years ago, previous CHEO and cyst removal, presents with llq abd pain, leukocytosis, and ct consistent with perforated contained mid sigmoid diverticulitis in same location as january. On exam abd is soft with mild suprapubic tenderness. Plan- Pt declines acute surgical intervention because she does not want a colostomy. cont medical management. cont npo, cont iv abx per id, may need to repeat ct on Monday to r/o abscess development. if medical management successful should consider elective sigmoid colectomy to prevent future recurrence. This should be done after colonoscopy in about 6-8 weeks. Pt understands that this may be a malignancy and that medical mangement may delay the diagnosis and ultimately lead to a worse outcome. Pt is non toxic. will follow. 06/05 Pt seen and examined. feels well. no pain. hungry afebrile, tmax 100.0 abd- soft, nt Laboratory Tests 06/05/16 09:50 WBC 11.7 H Plan- clear liquids, cont iv abx. poss repeat ct MON. 06/06 pt seen and examined. feels well. tolerated liquids. no pain. repeat ct shows worsening which is expected only [address] but no collection or extraluminal air afebrile abd- soft, nt, nd Laboratory Tests 06/05/16 09:50 WBC 11.7 H advance to full liquids, cont iv abx. would repeat ct Monday to r/o collection. 06/07 Pt seen and examined. tolerating full liquids. feels much better. walking. afebrile abd- soft, nt Laboratory Tests 06/07/16 06:30 WBC 7.8 D Plan- cont full liquids. possible low fiber tomorrow. repeat ct Monday. If improved (I would expect) can likely d/c home on Po abx per id. 06/08 Pt continues to progress. advance diet. for ct Monday. likely d/c on Po levaquin and Flagyl per ID if Ct shows no worsening. Eventual consideration to elective colectomy. 06/09/16 Pt continues to remain well. tolerating solid food. afebrile. abd soft, nt Plan- repeat Ct tomorrow. if better can d/c home with Oral abx per ID. f/u in about 6 weeks to consider prophylactic resection.
[2016-06-09] MEDS: VANCOMYCIN 1,250 MG in DEXTROSE 5%-WATER - 250 ML IVPB SCH (14:19)
[2016-06-10] MEDS: METRONIDAZOLE 500 MG PREMIXED 100 ML IVPB SCH ×2 (02:26→10:27)
[2016-06-10] MEDS: AZTREONAM 1 GM in DEXTROSE 5%-WATER - 50 ML IVPB SCH ×2 (02:29→09:40)
[2016-06-10] MEDS: D5-1/2NS+20 MEQ KCL - 1,000 ML IV SCH (06:15)
[2016-06-10] MEDS: LEVOTHYROXINE NA 25 MCG TABLET (FP) PO SCH (06:52)
[2016-06-10 07:22] LABS: BASOPHIL 0.7 % (0-2.0); EOSINOPHIL 5.6 % (0-4.5); MCH 29.9 pg (25.7-33.7); MCHC 33.2 g/dl (32.0-36.0); MEAN CELL VOLUME 90.1 fl (80-96); MEAN PLT VOLUME 7.9 fl (7.5-11.1); NEUTROPHILS 53.2 % (42.8-82.8); PLATELET COUNT 413 K/MM3 (134-434); RDW 13.9 % (11.6-15.6); WHITE BLOOD COUNT 8.1 K/mm3 (4.0-10.0)
[2016-06-10 07:53] LABS: ANION GAP 7 (8-16); BILIRUBIN,TOTAL 0.2 mg/dL (0.2-1.0); CALCIUM 8.8 mg/dL (8.5-10.1); CO2 26 mmol/L (21-32); CREATININE 0.8 mg/dL (0.55-1.02); GLUCOSE,RANDOM 108 mg/dL (74-106); SGOT/AST 57 U/L (15-37); SGPT/ALT 72 U/L (12-78); TOT PROT 7.4 g/dl (6.4-8.2)
[2016-06-10 07:54] LABS: ALK PHOS 62 U/L (45-117)
--- NOTE | 2016-06-10 08:04 | PN ---
Progress Note (short form) - Note Progress Note: Feels well, no abdominal pain. Going for CT abdomen/pelvis as per surgeon. Vital Signs - 24 hr 06/09/16 06/09/16 06/09/16 09:00 10:00 15:04 Temperature 98.6 F 98.6 F Pulse Rate 80 70 Respiratory 20 20 16 Rate Blood Pressure 154/82 116/80 O2 Sat by Pulse 100 Oximetry (%) 06/09/16 06/09/16 06/09/16 17:05 21:00 22:00 Temperature 97.9 F 98 F Pulse Rate 83 80 Respiratory 20 20 Rate Blood Pressure 120/78 118/71 O2 Sat by Pulse 100 Oximetry (%) 06/10/16 06:16 Temperature 98 F Pulse Rate 84 Respiratory 20 Rate Blood Pressure 122/72 O2 Sat by Pulse Oximetry (%) Awake, alert NAD. Neck supple, no JVD Lungs are clear Heart s1S2 regular Abdomen soft, NT, ND, active BS Rectal deferred Ext-no CCE, b/l TKR Laboratory Results - last 24 hr 06/09/16 06/10/16 06/10/16 09:25 06:15 06:15 WBC 8.1 RBC 3.67 Hgb 11.0 D Hct 33.1 MCV 90.1 MCHC 33.2 RDW 13.9 Plt Count 413 D MPV 7.9 Neutrophils % 53.2 Lymphocytes % 29.8 Monocytes % 10.7 H Eosinophils % 5.6 H Basophils % 0.7 Retic Count 1.26 Vitamin B12 1045 H Serum Folate 20 H Imp Current Active Problems Problem Status Diagnosed Anemia in chronic illness Acute Diverticulitis of sigmoid colon Acute HTN (hypertension) Acute Hx of antibiotic allergy Acute Hypothyroidism Acute Plan If CT stable will d/c home on PO Levaquin/Flagyl, Miralax. Will follow in the office Colonoscopy in 6 wks Surgical f/u re possible elective sigmoidectomy. Problem List - Problems (1) Diverticulitis of sigmoid colon Code(s): K57.32 - DVTRCLI OF LG INT W/O PERFORATION OR ABSCESS W/O BLEEDING (2) Abdominal pain Code(s): R10.9 - UNSPECIFIED ABDOMINAL PAIN Qualifiers: Abdominal location: left lower quadrant Qualified Code(s): R10.32 - Left lower quadrant pain (3) HTN (hypertension) Code(s): I10 - ESSENTIAL (PRIMARY) HYPERTENSION Qualifiers: Hypertension type: essential hypertension Qualified Code(s): I10 - Essential (primary) hypertension (4) Hypothyroidism Code(s): E03.9 - HYPOTHYROIDISM, UNSPECIFIED Qualifiers: Hypothyroidism type: acquired Qualified Code(s): E03.9 - Hypothyroidism, unspecified (5) Anemia in chronic illness Code(s): D63.8 - ANEMIA IN OTHER CHRONIC DISEASES CLASSIFIED ELSEWHERE
--- NOTE | 2016-06-10 08:07 | DS ---
Physical Examination Vital Signs: Vital Signs Temperature 98 F 06/10/16 06:16 Pulse Rate 84 06/10/16 06:16 Respiratory Rate 20 06/10/16 06:16 Blood Pressure 122/72 06/10/16 06:16 O2 Sat by Pulse Oximetry (%) 100 06/09/16 21:00 Findings/Remarks: Abdominal pain improved. Constitutional: Yes: No Distress, Calm Eyes: Yes: Conjunctiva Clear, EOM Intact HENT: Yes: Atraumatic Neck: Yes: Supple, Trachea Midline Cardiovascular: Yes: Regular Rate and Rhythm. No: Bradycardia, Tachycardia Respiratory: Yes: Regular, CTA Bilaterally Gastrointestinal: Yes: Normal Bowel Sounds, Soft. No: Abdomen, Obese, Ascites, Palpable Mass, Tenderness, Tenderness, Epigastrium ...Rectal Exam: Yes: Deferred Renal/: No: Anuria, Bladder Distention, CVA Tenderness - Left Breast(s): Yes: WNL Musculoskeletal: Yes: WNL Extremities: Yes: Other (TKR B/L) Edema: No Integumentary: Yes: WNL Neurological: Yes: WNL ...Motor Strength: WNL Psychiatric: Yes: WNL Labs: CBC, BMP 06/10/16 06:15 Laboratory Results - last 24 hr 06/09/16 06/10/16 06/10/16 09:25 06:15 06:15 WBC 8.1 RBC 3.67 Hgb 11.0 D Hct 33.1 MCV 90.1 MCHC 33.2 RDW 13.9 Plt Count 413 D MPV 7.9 Neutrophils % 53.2 Lymphocytes % 29.8 Monocytes % 10.7 H Eosinophils % 5.6 H Basophils % 0.7 Retic Count 1.26 Vitamin B12 1045 H Serum Folate 20 H Discharge Summary Reason For Visit: DIVERTICULITIS OF SIGMOID COLON Current Active Problems Anemia in chronic illness (Acute) Diverticulitis of sigmoid colon (Acute) HTN (hypertension) (Acute) Hx of antibiotic allergy (Acute) Hypothyroidism (Acute) Condition: Improved - Instructions Referrals: Jt Brito DO [Staff Physician] - 2 Weeks Luis Eduardo Munoz MD [Primary Care Provider] - Disposition: HOME - Home Medications Comprehensive Discharge Medication List: Ambulatory Orders Aspirin [ASA -] 81 mg PO DAILY 06/03/16 Clotrimazole/Betamet Diprop [Lotrisone Cream (Small Tube)] 1 applic TP BID 06/03 Clotrimazole/Betamethasone Dip [Clotrimazole-Betamethasone Lot] 30 ml TP BID Levofloxacin [Levaquin] 500 mg PO DAILY 06/03/16 Levothyroxine [Synthroid -] 25 mcg PO DAILY 06/03/16 Metronidazole [Flagyl -] 500 mg PO BID 06/03/16 Nebivolol [Bystolic -] 5 mg PO DAILY 06/03/16 Olmesartan/Hydrochlorothiazide [Benicar Hct 40-25 mg Tablet] 1 each PO ACHS Olmesartan/Hydrochlorothiazide [Benicar Hct 40-25 mg Tablet] 1 each PO DAILY Polyethylene Glycol 3350 [Miralax (For Daily Use) -] 17 gm PO DAILY 06/03/16 Potassium Chloride [K-Dur -] 20 meq PO DAILY 06/03/16 Simethicone [Mylicon -] 80 mg PO DAILY 06/03/16 Trazodone HCl [Desyrel -] 50 mg PO HS 06/03/16
[2016-06-10] MEDS ORDERED: PT OWN MED DRAWER 7, Y5N ONE (09:37)
[2016-06-10] MEDS: NEBIVOLOL 5 MG TABLET (FP) PO SCH (09:40)
[2016-06-10] MEDS: VALSARTAN 160 MG TABLET (UD) PO SCH (09:40)
[2016-06-10] MEDS: HYDROCHLOROTHIAZIDE 25 MG TABLET (FP) PO SCH (09:40)
[2016-06-10] MEDS: POLYETHYLENE GLYCOL 3350 119 GM BTL PO SCH (09:54)
[2016-06-10] MEDS: VANCOMYCIN 1,250 MG in DEXTROSE 5%-WATER - 250 ML IVPB SCH (14:52)
[2016-06-10 15:04] VITALS: BP 120/78; PULSE 90; TEMP 98.2
[2016-06-10] MEDS ORDERED: LEVOFLOXACIN 500 MG TABLET (FP) PO ONE (15:21)
--- NOTE | 2016-06-10 16:25 | PN ---
Progress Note (short form) - Note Progress Note: surgery ct reviewed. much improved. stable for d/c. abx per id.
[2016-06-10] MEDS ORDERED: metroNIDAZOLE 250 MG TABLET PO SCH (22:00)
== END 2016-06-10 15:54 | disposition home or self-care (01) | DRG 392 ==
LOC: JER 10:25 → JERBED 15:32 → J8W 18:00 → UNDODISIN 06-04 15:04
PROVIDERS: ADMIT Internal Medicine; ATTEND Internal Medicine
DX: K57.20 Diverticulitis of large intestine with perforation and abscess without bleeding (principal); I10 Essential (primary) hypertension; E78.5 Hyperlipidemia, unspecified; E89.0 Postprocedural hypothyroidism; M19.019 Primary osteoarthritis, unspecified shoulder; M47.9 Spondylosis, unspecified; Z96.653 Presence of artificial knee joint, bilateral; D63.8 Anemia in other chronic diseases classified elsewhere
CPT/HCPCS: 36415; 71020-TC; 74177-TC; 80048; 80053; 82607; 82728; 82746; 83010; 83690; 83735; 84100; 85025; 85044; 85651; 86140; 93005; 93010; 99282-25; G0480; Q9967

== ENCOUNTER 2016-09-05 06:53 | Day surgery (SDC) | payer OTHER ==
[2016-09-02 14:57] VITALS: BMI 30.8
[2016-09-05] MEDS ORDERED: PROPOFOL 20 ML ONE ×2 (07:47)
[2016-09-05 08:31] VITALS: TEMP 98.3
[2016-09-05 09:34] VITALS: BP 126/80; PULSE 66
--- NOTE | 2016-09-06 12:28 | PATH ---
Surgical Pathology Report Patient Name: ELISEO ALVAREZ [facility]. Rec. #: [id number] /Age/Gender: 1940 (Age: 76) / F Account: [id number] Location: ASU-ENDOSCOPY Taken: 09/05/2016 Received: 09/05/2016 Reported: 09/06/2016 Physicians: Irwin Adams M.D. Specimen(s) Received A: POLYP SIGMOID B: BX SIGMOID Clinical History Colon screening, history of diverticulitis Polyp, inflamed sigmoid, diverticulosis Final Diagnosis A. COLON AND SIGMOID, POLYP, POLYPECTOMY: SERRATED ADENOMA. B. COLON, SIGMOID, BIOPSY: COLONIC MUCOSA WITH FOCAL INCREASE IN EOSINOPHILS, FOCAL LAMINA PROPRIA EDEMA AND FOCAL MILD CRYPTS REGENERATIVE CHANGES (SEE COMMENT). NO EVIDENCE OF GRANULOMATA OR DYSPLASIA. Comment: The findings are nonspecific and may represent resolving mild colitis of various etiologies including infections and peridiverticular inflammation/diverticula associated colitis. Idiopathic bowel disease is less likely. Clinical, endoscopic correlations and followup are suggested. Electronically Signed Lalo Ko M.D. Gross Description A. Received in formalin, labeled "sigmoid polyp" are 2 hills, irregular portions of soft tissue averaging 0.3 cm in greatest dimension. The specimens are submitted in toto in one cassette. B. Received in formalin, labeled "biopsy sigmoid" are 2 hills, irregular portions of soft tissue averaging 0.2 cm in greatest dimension. The specimens are submitted in toto in one cassette. DL/09/05/2016 saudi/09/05/2016
== END 2016-09-05 09:34 | disposition home or self-care (01) ==
LOC: JASU-ENDO 06:53
PROVIDERS: ATTEND Internal Medicine Gastroenterology
PROC: 0DBN8ZX Excision of Sigmoid Colon, Via Natural or Artificial Opening Endoscopic, Diagnostic (ICD-10-PCS; 2016-09-05)
PROC: 0DBN8ZX Excision of Sigmoid Colon, Via Natural or Artificial Opening Endoscopic, Diagnostic (ICD-10-PCS; principal; 2016-09-05 08:00)
DX: Z12.11 Encounter for screening for malignant neoplasm of colon (principal); D12.5 Benign neoplasm of sigmoid colon; K57.30 Diverticulosis of large intestine without perforation or abscess without bleeding; I10 Essential (primary) hypertension; E78.5 Hyperlipidemia, unspecified; E03.9 Hypothyroidism, unspecified
CPT/HCPCS: 88305-TC

== ENCOUNTER → 2016-12-19 | Day surgery (SDC) | payer OTHER ==
--- NOTE | 2016-12-20 16:32 | PATH ---
Cytology Non-Gynecological Report Patient Name: ELISEO ALVAREZ [facility]. Rec. #: [id number] /Age/Gender: 1940 (Age: 76) / F Account: [id number] Location: RADIOLOGY Taken: 12/19/2016 Received: 12/19/2016 Reported: 12/20/2016 Physicians: Heather Glover M.D. Specimen(s) Received LEFT THYROID FNA Clinical History Left thyroid nodule, 3.01 x 1.40 x 1.97 cm Final Diagnosis THYROID, LEFT, FINE NEEDLE ASPIRATION: SATISFACTORY FOR EVALUATION BETHESDA CLASS II: BENIGN. CYTOLOGIC FINDINGS ARE CONSISTENT WITH A BENIGN FOLLICULAR NODULE BENIGN FOLLICULAR CELLS, MACROPHAGES, AND COLLOID PRESENT. __ Electronically Signed Mare Mcbride M.D. Gross Description Received are eight direct smears, four of which are air-dried and Diff-Quik stained, and four of which are alcohol fixed and Pap stained. Also received is 20 ml of bloody formalin from which one cellblock is prepared.
== END | disposition home or self-care (01) ==
LOC: JRADIR 09:51
PROVIDERS: ATTEND Internal Medicine Endocrinology, Diabetes & Metabolism
PROC: 0G9 Endocrine System, Drainage (ICD-10-PCS; principal; 2016-12-19)
PROC: BG43ZZZ Ultrasonography of Parathyroid Glands (ICD-10-PCS; 2016-12-19)
DX: E04.1 Nontoxic single thyroid nodule (principal)
CPT/HCPCS: 76942; 88173; 88305-TC

== ENCOUNTER → 2017-01-02 | Day surgery (SDC) | payer OTHER ==
--- NOTE | 2017-01-03 13:45 | PATH ---
Cytology Non-Gynecological Report Patient Name: ELISEO ALVAREZ [facility]. Rec. #: [id number] /Age/Gender: 1940 (Age: 76) / F Account: [id number] Location: RADIOLOGY Taken: 01/02/2017 Received: 01/02/2017 Reported: 01/03/2017 Physicians: Heather Glover M.D. Specimen(s) Received LEFT THYROID FNA Clinical History Left thyroid nodule, 2.10 x 2.57 x 1.37 cm Final Diagnosis THYROID, LEFT, FINE NEEDLE ASPIRATION: SATISFACTORY FOR EVALUATION BETHESDA CLASS II: BENIGN. CYTOLOGIC FINDINGS ARE CONSISTENT WITH A HYPERPLASTIC/ADENOMATOUS NODULE. BENIGN FOLLICULAR CELLS DISPERSED IN CELLULAR FRAGMENTS AND SHEETS IN A BACKGROUND OF COLLOID, RARE MACROPHAGES AND FEW LYMPHOCYTES. Electronically Signed Mare Mcbride M.D. Gross Description Received are eight direct smears, four of which are air-dried and Diff-Quik stained, and four of which are alcohol fixed and Pap stained. Also received is 20 ml of bloody formalin from which one cellblock is prepared.
== END | disposition home or self-care (01) ==
LOC: JRADIR 09:22
PROVIDERS: ATTEND Internal Medicine Endocrinology, Diabetes & Metabolism
PROC: 0G9G3ZX Drainage of Left Thyroid Gland Lobe, Percutaneous Approach, Diagnostic (ICD-10-PCS; principal; 2017-01-02)
PROC: BG44ZZZ Ultrasonography of Thyroid Gland (ICD-10-PCS; 2017-01-02)
DX: E04.1 Nontoxic single thyroid nodule (principal)
CPT/HCPCS: 76942; 88173; 88305-TC

== ENCOUNTER 2017-12-11 13:58 | Emergency (ER) | payer OTHER ==
[2017-12-11 14:07] VITALS: BP 159/57; PULSE 74; TEMP 97.7; BMI 31.1
--- NOTE | 2017-12-11 16:06 | PDOC ---
History of Present Illness - General Chief Complaint: Injury Stated Complaint: INJURY Time Seen by Provider: 12/11/17 14:23 History Source: Patient Exam Limitations: No Limitations - History of Present Illness Initial Comments: 12/11/17 17:33 Pt is a 77 y/o F who presents to the ED for one day of R foot pain. Pt states she stubbed her toe against the door frame last night. She states that it immediately swelled up and bruised. States that it hurts to walk, however she has no instability in her gait. Denies fevers, chills, numbness/tingling/ weakness to the extremities. Past History - Travel Traveled outside of the country in the last 30 days: No Close contact w/someone who was outside of country & ill: No - Past Medical History Allergies/Adverse Reactions: Allergies Allergy/AdvReac Type Severity Reaction Status Date / Time erythromycin base Allergy Verified 12/11/17 14:03 lactose Allergy Verified 12/11/17 14:03 Penicillins Allergy Verified 12/11/17 14:03 Tetracyclines Allergy Verified 12/11/17 14:03 Home Medications: Ambulatory Orders Levothyroxine [Synthroid -] 25 mcg PO DAILY 06/03/16 Nebivolol [Bystolic -] 20 mg PO DAILY 06/03/16 Olmesartan/Hydrochlorothiazide [Benicar Hct 40-25 mg Tablet] 1 each PO ACHS Multivitamin with Minerals [Icaps Plus] 1 each PO DAILY 09/02/16 Meloxicam [Mobic] 15 mg PO HS 12/11/17 Anemia: No Asthma: No Cancer: No Cardiac Disorders: No CVA: No COPD: No CHF: No Dementia: No Diabetes: No HTN: Yes Seizures: No Thyroid Disease: Yes (Hypothyroid) - Surgical History Abdominal Surgery: Yes Orthopedic Surgery: Yes - Suicide/Smoking/Psychosocial Hx Smoking History: Never smoked Have you smoked in the past 12 months: No Hx Alcohol Use: No Drug/Substance Use Hx: No Substance Use Type: None Review of Systems - Review of Systems Able to Perform ROS?: Yes Is the patient limited Persian proficient: No Constitutional: No: Chills, Diaphoresis, Fever Musculoskeletal: Yes: Joint Pain (r 4th metatarsel), Joint Swelling (r 4th metatarsel). No: Muscle Pain Integumentary: Yes: Bruising (r foot), Other (swelling to the R foot) Neurological: No: Headache, Paresthesia, Weakness, Unsteady Gait All Other Systems: Reviewed and Negative *Physical Exam - Vital Signs Last Vital Signs Temp Pulse Resp BP Pulse Ox 97.7 F 74 16 159/57 L 99 12/11/17 14:06 12/11/17 14:06 12/11/17 14:06 12/11/17 14:06 12/11/17 14:06 - Physical Exam General Appearance: Yes: Nourished, Appropriately Dressed. No: Apparent Distress (sitting in exam chair breathing easily) Extremity: positive: Normal Capillary Refill, Normal Range of Motion, Tender ( base of the R 4th metatarsel), Swelling (R lateral foot) Integumentary: positive: Dry, Warm, Bruising (R lateral dorsal foot) Neurologic: positive: Fully Oriented, Alert, Normal Response, Motor Strength 5/5 , Abnormal Cranial NS, Other (gait intact) ED Treatment Course - RADIOLOGY Radiology Studies Ordered: Category Date Time Status FOOT-RIGHT [RAD] Stat Radiology 12/11/17 14:24 Taken Medical Decision Making - Medical Decision Making 12/11/17 17:34 Pt is a 77 y/o F who presents to the ED for one day of R foot pain. Pt states she stubbed her toe against the door frame last night. -On exam TTP of the R lateral foot at the base of the 4th metatarsel. R foot with PMS intact. -X-ray with fracture through the shaft of the 4th metatarsel -Hard sole shoe and shannan tape applied; podiatry follow up given -DC home -I discussed the physical exam findings, ancillary test results and final diagnoses with the patient. I answered all of the patient's questions. The patient was satisfied with the care received and felt comfortable with the discharge plan and treatment plan. The Patient agrees to follow up with the primary care physician/specialist within 24-72 hours. Return precautions were given. *DC/Admit/Observation/Transfer Diagnosis at time of Disposition: Closed fracture of phalanx of right fourth toe Qualifiers: Encounter type: initial encounter Qualified Code(s): S92.501A - Displaced unspecified fracture of right lesser toe(s), initial encounter for closed fracture - Discharge Dispostion Disposition: HOME Condition at time of disposition: Stable Decision to Admit order: No - Referrals Referrals: Luis Eduardo Munoz MD [Primary Care Provider] - Polo Alaniz MD [Staff Physician] - - Patient Instructions Printed Discharge Instructions: DI for Toe Fracture Additional Instructions: You have a fourth toe fracture. Please keep the toe shannan taped for comfort and healing. You may wear the hard soled shoe for support. He may take your meloxicam as previously prescribed for pain. Follow the instructions on the bottle. Follow-up with podiatry this week. Return to the emergency department if you have worsening pain, difficulty walking, or any changes in your symptoms. - Post Discharge Activity
== END 2017-12-11 16:12 | disposition home or self-care (01) ==
LOC: JERFT 13:58
DX: S92.511A Displaced fracture of proximal phalanx of right lesser toe(s), initial encounter for closed fracture (principal); X58.XXXA Exposure to other specified factors, initial encounter; Y93.89 Activity, other specified; Y92.89 Other specified places as the place of occurrence of the external cause; I10 Essential (primary) hypertension; E03.9 Hypothyroidism, unspecified
CPT/HCPCS: 73630-TC-RT-FY; 99281-25

== ENCOUNTER 2017-12-27 11:19 | Day surgery (SDC) | payer OTHER ==
[2017-12-20 15:33] VITALS: BMI 31.1
[2017-12-27] MEDS ORDERED: ceFAZolin SODIUM 1 GM VIAL ONE (13:19)
[2017-12-27] MEDS ORDERED: DEXAMETHASONE SOD PHOSPHATE 4 MG/1 ML VIAL ONE (13:19)
[2017-12-27] MEDS ORDERED: ONDANSETRON 4 MG/2 ML VIAL ONE (13:19)
[2017-12-27] MEDS ORDERED: KETOROLAC TROMETHAMINE 30 MG/1 ML VIAL ONE (13:19)
[2017-12-27] MEDS ORDERED: MIDAZOLAM HCL 2 MG/2 ML SINGLE DOSE VIAL ONE (13:20)
[2017-12-27 14:56] VITALS: BP 110/70; PULSE 76; TEMP 98
--- NOTE | 2017-12-28 08:45 | OP ---
DATE OF OPERATION: 12/27/2017 PREOPERATIVE DIAGNOSIS: Left carpal tunnel syndrome. POSTOPERATIVE DIAGNOSIS: Left carpal tunnel syndrome. OPERATIVE PROCEDURE: Left carpal tunnel release. ANESTHESIA: Local with sedation. COMPLICATIONS: None. ESTIMATED BLOOD LOSS: Minimal. INDICATION FOR PROCEDURE: The patient is a 77-year-old female with the above finding indicated for operative treatment. Risks, benefits, alternatives were discussed with the patient at length. Proper informed consent was obtained. DESCRIPTION OF PROCEDURE: After preoperative identification of patient and correct operative site, the patient was brought to the operating room and placed supine on the operating table with all prominences well padded. Left upper extremity was prepped and draped in the usual sterile fashion. A well-padded tourniquet was placed over sterile prep. Esmarch bandage used to exsanguinate the left upper extremity. Tourniquet was inflated to 250 mmHg. Longitudinal incision was made in the proximal aspect of the palm. Incision was taken sharply through skin with blunt and sharp dissection of the subcutaneous tissues. Palmar fascia was divided longitudinally. Transverse carpal ligament along with the distal 4 cm of the antebrachial fascia were divided longitudinally under direct visualization with loupe magnification. This provided complete release of the median nerve at the wrist. Wound was irrigated with saline and repaired with a 5-0 nylon suture. Sterile dressings were applied. Patient was reversed from anesthesia and brought to the recovery room in stable condition. She tolerated the procedure well. Heather [id number]
== END 2017-12-27 14:57 | disposition home or self-care (01) ==
LOC: FASU 11:19
PROVIDERS: ATTEND Orthopaedic Surgery Hand Surgery
PROC: 01N50ZZ Release Median Nerve, Open Approach (ICD-10-PCS; principal; 2017-12-27 13:32)
DX: G56.02 Carpal tunnel syndrome, left upper limb (principal)

== ENCOUNTER 2018-10-08 02:49 | Emergency (ER) | payer OTHER ==
[2018-10-08 03:02] VITALS: BMI 29.2
--- NOTE | 2018-10-08 03:31 | PDOC ---
Attending Attestation - Resident Resident Name: Adrien Berger - ED Attending Attestation I have performed the following: I have examined & evaluated the patient, The case was reviewed & discussed with the resident, I agree w/resident's findings & plan - HPI HPI: 10/08/18 06:54 Pt comes with chest pain. - Physicial Exam PE: 10/08/18 06:54 Agree with resident exam. 10/08/18 06:55 Pt has a normal exam - Medical Decision Making 10/08/18 05:36 Pt's CPK is 548; but CK MB index is normal; rest of labs so far normal. EKG normal Pt will be signed out to day team adnd they can repeat 2nd card enzyme and she will be dispositioned by them. 10/08/18 06:23 Patient Name: ELISEO ALVAREZ THIS IS A PRELIMINARY REPORT FROM [facility]ING [facility] THERAP[facility] DATE OF SERVICE: 2018-10-08 05:33:08 IMAGES: 114 EXAM: ABDOMEN \T\ PELVIS CT WITH CONTR HISTORY: Right upper quadrant pain COMPARISON: None. FINDINGS: Lung bases are clear other than mild dependent atelectasis. The visualized cardiac chambers are normal size and configuration. A trace pericardial effusion is noted. Normal liver, gallbladder, pancreas, spleen, adrenal glands and kidneys. The stomach and abdominal small and large bowel are normal. There is no aortic aneurysm. There is no significant retroperitoneal lymphadenopathy. The pelvic small and large bowel are notable for sigmoid diverticulosis without definite diverticulitis. There is no evidence of appendicitis, although the appendix is not clearly visualized. Status post hysterectomy. Urinary bladder is unremarkable. There is no pelvic free fluid. No discrete pelvic lymphadenopathy is identified. Small fat-containing right inguinal hernia is noted IMPRESSION: No evidence of acute pathology 10/08/18 07:04 Heart Score/ECG Review - ECG Intrepretation Rhythm: Regular Rhythm - Fairbury Fairbury: Normal - P and DE Delta Wave(s) Present: No WPW: No - QRS Poor R Wave Progression: No Q Wave Present: No - ST and T Early Repolarization: No Non Specific ST-T Wave changes: No Flattened T Waves: No Prolonged Q-T Interval: No - ECG Impressions Normal ECG: Yes Non-specific ST Elevation: No Ischemic Changes: No Bradycardia: No
[2018-10-08] MEDS ORDERED: ACETAMINOPHEN 1000 MG/100 ML VIAL (NON FORMULARY) IVPB ONE (03:37)
[2018-10-08] MEDS ORDERED: SODIUM CHLORIDE 1,000 ML IV STA (03:37)
[2018-10-08] MEDS ORDERED: ACETAMINOPHEN INJECTION 100 ML IVPB ONE (04:23)
--- NOTE | 2018-10-08 04:32 | PDOC ---
History of Present Illness - General Chief Complaint: Chest Pain Stated Complaint: CHEST PAIN Time Seen by Provider: 10/08/18 03:05 History Source: Patient Exam Limitations: No Limitations - History of Present Illness Initial Comments: 10/08/18 04:23 Daniela Mcintosh is a 78F with PMH diverticulitis, HLD, hypothyroidism s/p thyroidectomy, HTN presenting with new onset epigastric pain. Patient was awakened from sleep at 3AM today with a sharp pain in her right epigastric region that radiates to her back. Denies chest pain, SOB, palpitations, fever. No change in pain with position, did not take any medications for pain. Denies cardiac history other than HTN, on Bystolic and Telmisartan/HCTZ. Denies urinary sx, constipation, diarrhea. Last oral intake 3PM 10/07/18 rice and beans. No prior pain like this, denies GERD. PMH hypothyroidism s/p thyroidectomy at [facility] on synthroid, admitted for diverticulitis here recently. Past History - Past Medical History Allergies/Adverse Reactions: Allergies Allergy/AdvReac Type Severity Reaction Status Date / Time erythromycin base Allergy Verified 10/08/18 03:02 lactose Allergy Verified 10/08/18 03:02 Penicillins Allergy Verified 10/08/18 03:02 Tetracyclines Allergy Verified 10/08/18 03:02 METAL Allergy Severe Difficulty Uncoded 10/08/18 03:02 Breathing Home Medications: Ambulatory Orders Levothyroxine [Synthroid -] 25 mcg PO DAILY 06/03/16 Nebivolol [Bystolic -] 20 mg PO DAILY 06/03/16 Olmesartan/Hydrochlorothiazide [Benicar Hct 40-25 mg Tablet] 1 each PO ACHS Multivitamin with Minerals [Icaps Plus] 1 each PO DAILY 09/02/16 Meloxicam [Mobic] 15 mg PO HS 12/11/17 Aspirin [Adult Aspirin Regimen] 81 mg PO DAILY 12/27/17 Anemia: No Asthma: No Cancer: No Cardiac Disorders: No CVA: No COPD: No CHF: No Dementia: No Diabetes: No GI Disorders: No Disorders: No HTN: Yes Hypercholesterolemia: Yes (BORDERLINE/ REFUSES STATINS) Liver Disease: No Seizures: No Thyroid Disease: Yes (Hypothyroid) - Surgical History Abdominal Surgery: Yes Appendectomy: No Cardiac Surgery: No Cholecystectomy: No Lung Surgery: No Neurologic Surgery: No Orthopedic Surgery: Yes (Bilateral Knee Replacement) - Suicide/Smoking/Psychosocial Hx Smoking History: Never smoked Have you smoked in the past 12 months: No Hx Alcohol Use: No Drug/Substance Use Hx: No Substance Use Type: None Hx Substance Use Treatment: No Review of Systems - Review of Systems Constitutional: Yes: Diaphoresis. No: Chills, Fever, Weakness HEENTM: No: Blurred Vision, Recent change in vision, Nose Congestion, Hearing Loss Respiratory: No: Cough, Shortness of Breath, Wheezing Cardiac (ROS): No: Chest Pain, Edema, Palpitations ABD/GI: Yes: See HPI. No: Abdominal Distended, Abd. Pain w/ defecation, Constipated, Diarrhea, Nausea, Vomiting : No: Burning, Dysuria, Discharge, Frequency, Flank Pain, Hematuria Musculoskeletal: Yes: Back Pain Integumentary: No: Bruising, Erythema, Lesions Neurological: No: Headache, Numbness, Paresthesia, Weakness Endocrine: No: Symptoms Reported Hematologic/Lymphatic: No: Symptoms Reported All Other Systems: Reviewed and Negative *Physical Exam - Vital Signs Last Vital Signs Temp Pulse Resp BP Pulse Ox 98.6 F 84 20 160/89 100 10/08/18 02:49 10/08/18 02:49 10/08/18 02:49 10/08/18 02:49 10/08/18 02:49 - Physical Exam General Appearance: Yes: Nourished, Appropriately Dressed, Severe Distress HEENT: positive: EOMI, SUHAIL, Symmetrical, Pharynx Normal. negative: Scleral Icterus (R), Scleral Icterus (L), Pharyngeal Erythema, Tonsillar Exudate, Tonsillar Erythema, Rhinorrhea Neck: positive: Trachea midline, Supple. negative: Lymphadenopathy (R), Lymphadenopathy (L) Respiratory/Chest: positive: Lungs Clear, Normal Breath Sounds. negative: Chest Tender, Respiratory Distress, Crackles, Rales, Rhonchi Cardiovascular: positive: Regular Rhythm, Regular Rate, Edema. negative: Murmur Gastrointestinal/Abdominal: positive: Normal Bowel Sounds, Tender (right epigastrium, right back). negative: Organomegaly Musculoskeletal: positive: Normal Inspection Extremity: positive: Normal Capillary Refill, Normal Inspection, Normal Range of Motion. negative: Tender Integumentary: positive: Normal Color, Dry, Warm. negative: Rash Neurologic: positive: Fully Oriented, Alert, Normal Mood/Affect, Normal Response Heart Score/ECG Review - History History: Slightly suspicious (HEART Score elevated but no clinical signs of NH. ECG grossly normal, patient denies all chest pain, troponins negative at admisison and 4 hours later. Greater likelihood of abdominal pathology.) - Electrocardiogram EKG: Normal - Age Age: >/= 65 - Risk Factors Risk Factors Heart Score: Yes Hx Hypercholesterolemia, Yes Hx Hypertension Based on the list above the patient has:: >/=3 risk factors or Hx atherosclerotic disease - Troponin Troponin: </= normal limit - Score Heart Score - Total: 4 ED Treatment Course - LABORATORY CBC & Chemistry Diagram: 10/08/18 04:37 10/08/18 04:03 Medical Decision Making - Medical Decision Making 10/08/18 04:39 Daniela Mcintosh is a 78F with PMH diverticulitis, HLD, hypothyroidism s/p thyroidectomy, HTN presenting with new onset epigastric pain. Patient presentation highly concerning for AAA rupture or NH given presentation ; ECG performed does not show concerning signs for NH. Ddx includes acute pancreatitis, cholangitis/cholecystitis/biliary colic, gastritis, renal calculus. Evaluating with CMP, CBC, CP, ECG, lipase, and CT abd with contrast. Patient is a difficult stick and has poor pain tolerance. Blue top tube clotted on the way to lab. Given 1000mg IV Tylenol for pain. 10/08/18 06:00 CT abd grossly normal. Cardiac, renal, AAA ruled out. Giving pepcid and maalox for presumed gastritis. 2nd troponin 4 hours later at 7:30AM, can discharge with cardiology f/u if negative. Also consider US gallbladder and pancreas to assess gallbladder pathology. 10/08/18 07:[address] Villela. Plan to repeat troponin at 7:30, dispo home likely unless abd US pursued after reassessment, *DC/Admit/Observation/Transfer Diagnosis at time of Disposition: Abdominal pain Qualifiers: Abdominal location: epigastric Qualified Code(s): R10.13 - Epigastric pain - Referrals - Patient Instructions Printed Discharge Instructions: DI for Atypical Chest Pain Additional Instructions: Today you were evaluated for chest pain. We obtained an EKG that did not show signs of a heart attack. - Post Discharge Activity
[2018-10-08 04:49] LABS: EOS % 4.1 % (0-4.5); HEMOGLOBIN 11.4 GM/dL (10.7-15.3); MCH 30.5 pg (25.7-33.7)
[2018-10-08 04:56] LABS: BASO % 0.5 % (0-2.0); HEMATOCRIT 34.1 % (32.4-45.2); LYMPH % 30.6 % (8-40); MCHC 33.3 g/dl (32.0-36.0); MEAN CELL VOLUME 91.5 fl (80-96); MEAN PLT VOLUME 9.4 fl (7.5-11.1); MONO % 9.7 % (3.8-10.2); NEUT % 55.1 % (42.8-82.8); PLATELET COUNT 276 K/MM3 (134-434); RBC 3.73 M/mm3 (3.60-5.2); WHITE BLOOD COUNT 8.9 K/mm3 (4.0-10.0)
[2018-10-08 05:14] LABS: ALBUMIN 3.8 g/dl (3.4-5.0); ALK PHOS 70 U/L (45-117); ANION GAP 8 MMOL/L (8-16); BILIRUBIN,TOTAL 0.4 mg/dL (0.2-1); BLOOD UREA NITROGEN 29.6 mg/dL (7-18); CALCIUM 9.7 mg/dL (8.5-10.1); CHLORIDE 106 mmol/L (98-107); CO2 27 mmol/L (21-32); CREATININE 1.1 mg/dL (0.55-1.3); GLUCOSE,RANDOM 125 mg/dL (74-106); LIPASE 214 U/L (73-393); POTASSIUM 4.1 mmol/L (3.5-5.1); SGOT/AST 28 U/L (15-37); SGPT/ALT 26 U/L (13-61); SODIUM 141 mmol/L (136-145)
[2018-10-08] MEDS ORDERED: MAG HYDROX/AL HYDROX/SIMETH 30 ML UNIT-DOSE CUP PO ONE (06:28)
[2018-10-08] MEDS ORDERED: FAMOTIDINE 20 MG/50 ML IVPB 20 MG/50 ML MG IVPB ONE ×2 (06:28→06:52)
[2018-10-08] MEDS ORDERED: MAG HYDROX/AL HYDROX/SIMETH 30 ML UNIT-DOSE CUP ONE (06:33)
--- NOTE | 2018-10-08 07:18 | PDOC ---
ED Treatment Course - LABORATORY CBC & Chemistry Diagram: 10/08/18 04:37 10/08/18 04:03 - ADDITIONAL ORDERS Additional order review: Laboratory Results 10/08/18 04:03 Sodium 141 Potassium 4.1 Chloride 106 Carbon Dioxide 27 Anion Gap 8 BUN 29.6 H Creatinine 1.1 Est GFR (CKD-EPI)AfAm 55.30 Est GFR (CKD-EPI)NonAf 47.71 Random Glucose 125 H Calcium 9.7 Total Bilirubin 0.4 AST 28 ALT 26 Alkaline Phosphatase 70 Creatine Kinase 548 H Creatine Kinase Index 0.9 CK-MB (CK-2) 5.0 H Troponin I < 0.02 Total Protein 8.0 Albumin 3.8 Lipase 214 10/08/18 10/08/18 04:37 04:03 RBC 3.73 Cancelled MCV 91.5 Cancelled MCHC 33.3 Cancelled RDW 14.0 Cancelled MPV 9.4 D Cancelled Neutrophils % 55.1 Cancelled Lymphocytes % 30.6 Cancelled Monocytes % 9.7 Cancelled Eosinophils % 4.1 Cancelled Basophils % 0.5 Cancelled - Medications Given in the ED: ED Medications Discontinued Medications Generic Name Dose Route Start Last Admin Trade Name Freq PRN Reason Stop Dose Admin Acetaminophen 1,000 mg 10/08/18 03:37 10/08/18 04:31 Ofirmev Injection - IVPB 10/08/18 03:38 1,000 mg ONCE ONE Administration Al Hydroxide/Mg Hydroxide 30 ml 10/08/18 06:28 10/08/18 06:41 Mylanta Oral Suspension - PO 10/08/18 06:29 30 ml ONCE ONE Administration Sodium Chloride 1,000 mls @ 1,000 mls/hr 10/08/18 03:37 10/08/18 04:31 Normal Saline - IV 10/08/18 04:36 1,000 mls/hr ASDIR STA Administration Famotidine/Sodium Chloride 20 mg in 50 mls @ 100 mls/hr 10/08/18 06:28 06:55 Pepcid 20 Mg Premixed Ivpb - IVPB 10/08/18 06:57 100 mls/hr ONCE ONE Administration Medical Decision Making - Medical Decision Making 10/08/18 07:17 Pt signed out to me by Dr. Berger, [facility] resident. 78F with PMH diverticulitis, HLD, hypothyroidism s/p thyroidectomy, HTN presented to ED for epigastric pain radiating to the RUQ. Initial Vital Signs Temp Pulse Resp BP Pulse Ox 98.6 F 84 20 160/89 100 10/08/18 02:49 10/08/18 02:49 10/08/18 02:49 10/08/18 02:49 10/08/18 02:49 Afebrile. No tachycardia. No tachypnea. Mild hypertension. No hypoxia on room air. Medications given: pepcid, maalox, tylenol IV, normal saline bolus 1000 cc once EKG performed at 0302: rate 79, regular rhythm, normal axis, normal intervals, no acute ST changes. Vital Signs Temperature 97.4 F L 10/08/18 06:41 Pulse Rate 64 10/08/18 06:41 Respiratory Rate 18 10/08/18 06:41 Blood Pressure 138/68 10/08/18 06:41 O2 Sat by Pulse Oximetry (%) 99 10/08/18 06:41 HTN improved with pain control. CBC WBC 8.9 K/mm3 (4.0-10.0) 10/08/18 04:37 Corrected WBC (auto) Cancelled 10/08/18 04:03 RBC 3.73 M/mm3 (3.60-5.2) 10/08/18 04:37 Hgb 11.4 GM/dL (10.7-15.3) 10/08/18 04:37 Hct 34.1 % (32.4-45.2) 10/08/18 04:37 MCV 91.5 fl (80-96) 10/08/18 04:37 MCH 30.5 pg (25.7-33.7) 10/08/18 04:37 MCHC 33.3 g/dl (32.0-36.0) 10/08/18 04:37 RDW 14.0 % (11.6-15.6) 10/08/18 04:37 Plt Count 276 K/MM3 (134-434) D 10/08/18 04:37 MPV 9.4 fl (7.5-11.1) D 10/08/18 04:37 Absolute Neuts (auto) 4.9 K/mm3 (1.5-8.0) 10/08/18 04:37 Neutrophils % 55.1 % (42.8-82.8) 10/08/18 04:37 Lymphocytes % 30.6 % (8-40) 10/08/18 04:37 Monocytes % 9.7 % (3.8-10.2) 10/08/18 04:37 Eosinophils % 4.1 % (0-4.5) 10/08/18 04:37 Basophils % 0.5 % (0-2.0) 10/08/18 04:37 Nucleated RBC % 0 % (0-0) 10/08/18 04:37 Platelet Estimate Cancelled 10/08/18 04:03 Platelet Comment Cancelled 10/08/18 04:03 No loeukocytosis. No anemia. No left shift. CMP Sodium 141 mmol/L (136-145) 10/08/18 04:03 Potassium 4.1 mmol/L (3.5-5.1) 10/08/18 04:03 Chloride 106 mmol/L (98-107) 10/08/18 04:03 Carbon Dioxide 27 mmol/L (21-32) 10/08/18 04:03 Anion Gap 8 MMOL/L (8-16) 10/08/18 04:03 BUN 29.6 mg/dL (7-18) H 10/08/18 04:03 Creatinine 1.1 mg/dL (0.55-1.3) 10/08/18 04:03 Est GFR (CKD-EPI)AfAm 55.30 10/08/18 04:03 Est GFR (CKD-EPI)NonAf 47.71 10/08/18 04:03 Random Glucose 125 mg/dL (74-106) H 10/08/18 04:03 Calcium 9.7 mg/dL (8.5-10.1) 10/08/18 04:03 Total Bilirubin 0.4 mg/dL (0.2-1) 10/08/18 04:03 AST 28 U/L (15-37) 10/08/18 04:03 ALT 26 U/L (13-61) 10/08/18 04:03 Alkaline Phosphatase 70 U/L (45-117) 10/08/18 04:03 Creatine Kinase 548 U/L (26-192) H 10/08/18 04:03 Creatine Kinase Index 0.9 % (0.0-5.0) 10/08/18 04:03 CK-MB (CK-2) 5.0 ng/mL (0.5-3.6) H 10/08/18 04:03 Troponin I < 0.02 ng/ml (0.00-0.05) 10/08/18 04:03 Total Protein 8.0 g/dl (6.4-8.2) 10/08/18 04:03 Albumin 3.8 g/dl (3.4-5.0) 10/08/18 04:03 Lipase 214 U/L (73-393) 10/08/18 04:03 No electrolyte abnormalities. No ANTHONY. No transaminitis. CK elevated - IVF running Troponin wnl - will repeat Lipase wnl CT abdomen/pelvis with IV contrast report: DATE OF SERVICE: 2018-10-08 05:33:08 IMAGES: 114 EXAM: ABDOMEN \T\ PELVIS CT WITH CONTR HISTORY: Right upper quadrant pain COMPARISON: None. FINDINGS: Lung bases are clear other than mild dependent atelectasis. The visualized cardiac chambers are normal size and configuration. A trace pericardial effusion is noted. Normal liver, gallbladder , pancreas, spleen, adrenal glands and kidneys. The stomach and abdominal small and large bowel are normal. There is no aortic aneurysm. There is no significant retroperitoneal lymphadenopathy. The pelvic small and large bowel are notable for sigmoid diverticulosis without definite diverticulitis. There is no evidence of appendicitis, although the appendix is not clearly visualized. Status post hysterectomy. Urinary bladder is unremarkable. There is no pelvic free fluid. No discrete pelvic lymphadenopathy is identified. Small fat-containing right inguinal hernia is noted IMPRESSION: No evidence of acute pathology. One or more of the following dose reduction techniques were used: automated exposure control, adjustment of the mA and/or kV according to patient size, use of iterative reconstructive technique. THIS DOCUMENT HAS BEEN ELECTRONICALLY SIGNED Dom Alcala MD 10/08/2018 06:19 ANGELITO Romero Please call [facility] [phone] ([phone]) with questions. Rosales Alcala MD 10/08/18 08:19 Pt reassessed, reported pain improved. 10/08/18 08:48 10/08/18 09:19 Second trop undetectable. Pt reported improvement of pain. Requesting Discharge. Pt discharged with PCP/GI follow up recommendations. *DC/Admit/Observation/Transfer Diagnosis at time of Disposition: Epigastric pain - Discharge Dispostion Disposition: HOME Condition at time of disposition: Improved Decision to Admit order: No - Referrals Referrals: Irwin Adams MD [Staff Physician] - Julian Garcia MD [Staff Physician] - - Patient Instructions Printed Discharge Instructions: DI for Atypical Chest Pain, DI for Epigastric Pain, GERD Diet Additional Instructions: Your lab work was normal. Your Cat-Scan was normal. Avoid foods that can cause gall bladder contraction - fatty/fried foods. Avoid foods that can irritate your stomach - fried, alcohol, caffeine, coffee, tea, spicy, chocolate, tomatoes. Follow up with a advisor consultant within 5 days. Your care is not complete until you follow up. I have provided you with multiple referrals. Follow up with your primary care doctor within 3 days. Your care is not complete until you follow up. Return to the Emergency Department for increasing pain, chest pain, shortness of breath, lightheadedness, fever, vomiting, vomiting, blood, or any other new, worsening or concerning symptoms. - Post Discharge Activity
[2018-10-08 07:26] VITALS: TEMP 97
[2018-10-08 09:38] VITALS: BP 112/55; PULSE 67
--- NOTE | 2018-10-08 10:57 | EKG ---
Test Reason : Blood Pressure : / mmHG Vent. Rate : 079 BPM Atrial Rate : 079 BPM P-R Int : 186 ms QRS Dur : 102 ms QT Int : 384 ms P-R-T Axes : 031 020 032 degrees QTc Int : 440 ms NORMAL SINUS RHYTHM NORMAL ECG WHEN COMPARED WITH ECG OF 03-JUN-2016 12:21, NO SIGNIFICANT CHANGE WAS FOUND Confirmed by PIA ZAMORA MD ([id number]) on 10/08/2018 10:56:35 AM Referred By: Confirmed By:PIA ZAMORA MD
== END 2018-10-08 09:36 | disposition home or self-care (01) ==
LOC: JER 02:49
PROC: 3E033NZ Introduction of Analgesics, Hypnotics, Sedatives into Peripheral Vein, Percutaneous Approach (ICD-10-PCS; principal; 2018-10-08)
PROC: 3E033GC Introduction of Other Therapeutic Substance into Peripheral Vein, Percutaneous Approach (ICD-10-PCS; 2018-10-08)
PROC: 3E0337Z Introduction of Electrolytic and Water Balance Substance into Peripheral Vein, Percutaneous Approach (ICD-10-PCS; 2018-10-08)
DX: R10.13 Epigastric pain (principal); E78.5 Hyperlipidemia, unspecified; E03.9 Hypothyroidism, unspecified; I10 Essential (primary) hypertension
CPT/HCPCS: 36415; 74177-TC; 80053; 82550; 82553; 83690; 84484; 85025; 93005; 93010; 96361; 96365; 96375; 99284-25; J0131; J7030